=== PATIENT | female | born 1970 | race Caucasian/White ===

== ENCOUNTER 2024-03-23 16:29 | Emergency (ER) | payer MEDICAID, SELFPAY ==
--- OUTSIDE RECORDS SUMMARY | 2024-03-23 16:31 | XMS_ITS | Clinical Summary ---
Author Organization [facility] Address [place], [place] [address] Care Team Providers Care Camp Tender Name Role Phone Crispin Ordoñez MD Primary Care P dader Allergies Active Allergy Reactions Criticality Noted Date Comments Latex Rash 04/30/2015 Penicillins Rash Medium 01/18/2006 Medications tacrolimus (PROTOPIC) 0.1 % ointmentIndicat ions:Vitiligo Apply topically to affected area(s) two times daily. 100 g 11 4 Active FLUoxetine (PROZAC) 20 mg capsuleIndicati ons:Depression, recurrent (HC),MALU (generalized anxiety disorder) Take 1 Capsule (20 mg) by mouth once daily. If no side effects, you can increase to 2 pills per day after 1 week of taking. 30 Capsule 1 5 Active amLODIPine (NORVASC) 5 mg tabletIndicatio ns:HTN (hypertension) Take 1 Tablet (5 mg) by mouth once daily. 30 Tablet 1 5 Active prochlorperazin e (COMPAZINE) 5 mg tabletIndicatio ns:Nausea and vomiting, unspecified vomiting type Take 1 Tablet (5 mg) by mouth every 6 hours if needed for Nausea/Vomiting . 30 Tablet 5 Active budesonide-form oteroL (SYMBICORT) 80-4.5 mcg/actuation (80-4.5 mcg each actuation) inhalerIndicati ons:Moderate asthma with exacerbation, unspecified whether persistent Inhale 2 puffs twice daily and 1-2 puffs every 4 hours as needed for asthma exacerbations. Max of 8 puffs per day. 1 Each 5 Active polyethylene glycol-electrol yte (GOLYTELY) 236-22.74-6.74 -5.86 gram suspensionIndic ations:Encounte r for screening colonoscopy Drink 2 liters (half the bottle) the day before colonoscopy and 2 liters (remaining prep) 6 hours prior to colonoscopy appointment. 4000 mL 5 Active albuterol HFA (PROAIR HFA) 90 mcg/Actuation inhaler Inhale 1-2 Puffs by mouth every 6 hours if needed. 1 Inhaler 0 0 025 Discontin ued(*Med complete/ Regimen complete/ Level of care change) norgestimate-et hinyl estradiol, 0.25-35 mg-mcg, (ORTHO-CYCLEN) 0.25-35 mg-mcg tabletIndicatio ns:Menorrhagia with regular cycle Take 1 tablet by mouth once daily. Take one pill from each pack every day until bleeding stops, then switch to one pill each day. 2 Package 7 025 Discontin ued(*Med complete/ Regimen complete/ Level of care change) FLUoxetine (PROZAC) 20 mg capsule Take 1 Capsule (20 mg) by mouth once daily. 90 Capsule 3 4 025 Discontin ued(Reord er (E-cancel not sent)) predniSONE (DELTASONE) 10 mg tabletIndicatio ns:Vitiligo Take 1 Tablet (10 mg) by mouth once daily with a meal. 14 Tablet 4 025 Discontin ued(*Med complete/ Regimen complete/ Level of care change) prochlorperazin e (COMPAZINE) 5 mg tabletIndicatio ns:Nausea and vomiting, unspecified vomiting type Take 1 Tablet (5 mg) by mouth every 6 hours if needed for Nausea/Vomiting . 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 (Problem list name updated by automated process. Provider to review and confirm.) Resolved Problems Problem Noted Date Diagnosed Date Resolved Date Trigger finger of all digits of both hands 03/17/2024 03/17/2024 (normal spontaneous vaginal delivery) 06/18/2015 12/14/2023 care and examinat ion of lactating mother 06/18/2015 12/14/2023 Encounters Date Type Department Care Team Description 03/22/2024 Telephone [facility] [address] [place] [address] Minor Aguilera MD Appointment Reminder ([facility] 03/29/24) 03/18/2024 Telephone [facility] [address] [place] [address] Crispin Ordoñez MD Results 03/18/2024 Telephone [facility] [address] [place] [address] Minor Aguilera MD Need Meds 03/18/2024 Telephone [facility] [address] [place] [address] Abdullahi Golden LICSW Late Cancel Appointment 03/17/2024 1:00 PM DRIVER TRAINER Office Visit [facility] [address] [place] [address] Crispin Ordoñez MD eating disorder; Arthritis (hands are painful- toes can hurt sometimes too ); Blood Pressure; Form (medical opinion form ) 03/17/2024 Travel 02/10/[address] [facility] [address] [address] Maci Rosario MD Appointment (DERMATOLOGY ORDER TO LIGHT THERAPY/LASER TREATMENT) 02/09/2024 4:30 PM DRIVER TRAINER Office Visit [facility] [address] [place] [address] Maci Rosario MD Derm Problem 02/09/2024 Travel 12/28/2023 Nurse Triage [facility] [address] [place] [address] Crispin Ordoñez MD Chest Pain from Last 3 Months Immunizations Name Administration Dates Next Due Influenza Virus, Unspecified 01/18/2008 Influenza, IIV3 (Age 6-35 mos) 12/11/2011,2009 Influenza, IIV4 11/27/2014,11/17/2012 Tdap 04/03/2015,02/05/2012 Family History Medical History Relation Name Comments Leukemia Father Osteosarcoma Son left leg Relation Name Status Comments Father Son Social History Tobacco Use Types Packs/Day Years Used Date Smoking Tobacco: Passive Smo ke Exposure - Never Smoker Smokeless Tobacco: Never Alcohol Use Standard Drinks/Week Comments No 0 (1 standard drink = 0.6 oz pur e alcohol) rare PHQ-2 Answer Date Recorded PHQ-2 TOTAL SCORE 4 03/17/2024 Social Connections Answer Date Recorded Do you often feel lonely or isolated from those around you? 0 12/14/2023 Financial Resource Strain Answer Date R ecorded Difficulty of Paying Living Expenses 3 12/14/2023 Difficulty of Paying Living Expenses Not on file 12/14/2023 Food Insecurity Answer Date Recorded Do you worry your food will run out before you are able to buy more? 1 12/14/2023 Transportation Needs Answer Date Record ed Does lack of transportation keep you from medica l appointments? 1 12/14/2023 Does lack of transportation keep you from work, meetings or getting things that you need? 1 12/14/2023 Housing Stability Answer Date Recorded What is your housing situation today? 1 12/14/2023 Utilities Answer Date Recorded Do you have trouble paying f or utilities (for example, heat, electricity, water, phone)? 1 12/14/2023 Comments No Sex and Gender Information Value Date Recorded Sex Assigned at Not on file Legal Sex Female 6:37 AM DRIVER TRAINER Gender Identity Not on file Sexual Orientation Not on file Obstetrics History Para Term AB IAB SAB Ectopic Multiple Livin g Live Births 10 8 3 5 1 0 1 0 0 7 7 Date Outcome GA Total Labor Labor/2nd/3rd Weight Sex Type Anes PTL Chely A1 A5 Name Clin 8 32w 0d 1.36 kg (3 lb) M Vag Living 1988 23w 0d M Demise 1989 SAB 19w 0d F N Demise 1 32w 0d 2.27 kg (5 lb) F Vag Y Living 5 35w 0d 2.27 kg (5 lb) F Vag Y Living 6 35w 0d 1.81 kg (4 lb) F Vag Y Living 9 Term 39w 0d 2.81 kg (6 lb 3 oz) F Vag Living 4 Term 39w 0d 3.18 kg (7 lb) F Vag Living 8 Term 40w 0d 3.18 kg (7 lb) M Vag Living Last Filed Vital Signs Vital Sign Reading Time Taken Comments Blood Pressure 146/90 03/17/2024 1:59 PM DRIVER TRAINER Pulse 92 03/17/2024 1:09 PM DRIVER TRAINER Temperature 36.9 C (98.4 F) 12/28/2018 6:49 PM DRIVER TRAINER Respiratory Rate 16 12/28/2018 8:00 PM DRIVER TRAINER Oxygen Saturation 100% 03/17/2024 1:09 PM DRIVER TRAINER Inhaled Oxygen Concentration - - Weight 85.8 kg (189 lb 1.6 oz) 03/17/2024 1:09 P M DRIVER TRAINER Height 154.9 cm (5' 1) 12/28/2018 6:49 PM DRIVER TRAINER Body Mass Index 35.73 12/28/2018 6:49 PM DRIVER TRAINER Plan of Treatment Upcoming Encounters Date Type Department Care Team (Late st Contact Info) Description 03/24/2024 3:00 PM DRIVER TRAINER Nurse/Clinic Staff Only [facility] [address] [place] [address] 03/25/2024 2:40 PM DRIVER TRAINER Office Visit [facility] [address] [facility] [place] [address] Vernell Lopez, OD [address] [place] [address] 03/28/2024 10:30 AM DRIVER TRAINER Office Visit [facility] [address] [place] [address] Abdullahi Golden, [facility] [address] [place] [address] 04/21/2024 1:00 PM DRIVER TRAINER Office Visit [facility] [address] [place] [address] Crispin Ordoñez MD [address] [place] [address] 05/10/2024 4:00 PM CDT Office Visit [facility] [address] [facility] [address] [place], [place] [address] Maci Rosario MD [address] [facility] [address] [place], [place] [address] Scheduled Procedures Name Priority Associated Diagnoses Date/Ti me SURGICAL PROCEDURE (TYPE PROCEDURE DESCRIPTION BELOW) Encounter for screening colonoscopy Health Maintenance Due Date Last Done Comments Pap test for age 21-65 1993 BMI (ht and wt on same day) for age 18+ 07/22/2017 07/22/2016 Colonoscopy through age 75 2017 Mammogram for age 45-75 2017 Pneumococcal series for age 50+ (1 of 1 - PCV) 2022 Zoster (shingles) series for age 50+ (1 of 2) 2022 COVID-19 vaccine series (1 - 2023- season) 2023 Influenza for age 50-64 10/25/2023 11/28/19 15, 11/17/2012, 01/18/2008 Lipids for age 45-75 12/01/2024 12/02/2019 (Verified in Care Everywhere or Patient Record) Depression screening for age 12+ 03/18/2025 03/18/2024, 03/18/2024, 03/18/2024, Additional history exists Tetanus booster 04/03/2025 04/03/2015, 02/05/2012 Hepatitis C screening for age 18-79 Addressed 03/05/2012 (Verified in Care Everywhere or Patient Record) Overridden with the intention of not completing the topic HIV for age 15-65 Addressed 11/27/2014 (Ve rified in Care Everywhere or Patient Record) Overridden with the intention of not completing the topic Tdap Completed 04/03/2015, 02/05/2012 Procedures Procedure Name Priority Date/Time Associated Diagnosis Comments IRON PLUS IRON BINDING CAP Routine 03/17/2024 2:11 PM DRIVER TRAINER Anemia of unknown etiology FERRITIN Routine 03/17/2024 2:11 PM DRIVER TRAINER Anemia of unknown etiology CBC WITH AUTO DIFFERENTIAL Routine 03/17/2024 2:11 PM DRIVER TRAINER Nausea and vomiting, unspecified vomiting type TSH Routine 03/17/2024 2:11 PM DRIVER TRAINER Nausea and vomiting, unspecified vomiting type COMP METABOLIC PANEL Routine 03/17/2024 2:11 PM DRIVER TRAINER Nausea and vomiting, unspecified vomiting type from Last 3 Months Results * TSH (03/17/2024 2:11 PM DRIVER TRAINER) TSH 1.58 mIU/L [facility] Comment: Reference Range > or = 20 Years 0.40-4.50 Ranges First trimester 0.26-2.66 Second trimester 0.55-2.73 Third trimester 0.43-2.91 Blood BLOOD SPECIMEN / Unknown 03/17/2024 2:11 PM DRIVER TRAINER 03/17/2024 2:11 PM DRIVER TRAINER Crispin Ordoñez MD CHEMISTRY Final Result [facility] [address] [place] [address], [facility] [address] [place] [address] * (ABNORMAL) IRON PLUS IRON BINDING CAP (03/17/2024 2:11 PM DRIVER TRAINER) Pathologist [facility] IRON, TOTAL 87 45 - 160 mcg/dL [facility] IRON BINDING CAPACITY 458(H) 250 - 450 mcg/dL (calc) [facility] % SATURATION 19 16 - 45 % (calc) [facility] Blood BLOOD SPECIMEN / Unknown 03/17/2024 2:11 PM DRIVER TRAINER 03/17/2024 2:11 PM DRIVER TRAINER Crispin Ordoñez MD CHEMISTRY Final Result [facility] [address] [place] [address], [facility] [address] [place] [address] * CBC AND DIFFERENTIAL (03/17/2024 2:11 PM DRIVER TRAINER) [facility] WHITE BLOOD CELL COUNT 8.2 3.8 - 10.8 Thousand/u L [facility] RED BLOOD CELL COUNT 4.35 3.80 - 5.10 Million/uL [facility] HEMOGLOBIN 12.2 11.7 - 15.5 g/dL [facility] HEMATOCRIT 37.2 35.0 - 45.0 % [facility] MCV 85.5 80.0 - 100.0 fL [facility] MCH 28.0 27.0 - 33.0 pg [facility] MCHC 32.8 32.0 - 36.0 g/dL [facility] Comment: For adults, a slight decrease in the calculated MCHC value (in the range of 30 to 32 g/dL) is most likely not clinically significant; however, it should be interpreted with caution in correlation with other red cell parameters and the patient's clinical condition. RDW 13.5 11.0 - 15.0 % [facility] PLATELET COUNT 247 140 - 400 Thousand/u L [facility] MPV 12.1 7.5 - 12.5 fL [facility] ABSOLUTE NEUTROPHILS 4,813 1,500 - 7,800 cells/uL [facility] ABSOLUTE LYMPHOCYTES 2,419 850 - 3,900 cells/uL [facility] ABSOLUTE MONOCYTES 738 200 - 950 cells/uL [facility] ABSOLUTE EOSINOPHILS 189 15 - 500 cells/uL [facility] ABSOLUTE BASOPHILS 41 0 - 200 cells/uL [facility] NEUTROPHILS 58.7 % [facility] LYMPHOCYTES 29.5 % [facility] MONOCYTES 9.0 % [facility] EOSINOPHILS 2.3 % [facility] BASOPHILS 0.5 % [facility] Blood BLOOD SPECIMEN / Unknown 03/17/2024 2:11 PM DRIVER TRAINER 03/17/2024 2:11 PM DRIVER TRAINER Crispin Ordoñez MD HEMATOLOGY Final Result [facility] [address] [place] [address], [place] [phone] [facility] [address] [place] [address] * FERRITIN (03/17/2024 2:11 PM DRIVER TRAINER) Pathologist [facility] FERRITIN 42 16 - 232 ng/mL [facility] Blood BLOOD SPECIMEN / Unknown 03/17/2024 2:11 PM DRIVER TRAINER 03/17/2024 2:11 PM DRIVER TRAINER Crispin Ordoñez MD CHEMISTRY Final Result [facility] [address] [place] [address], [place] [phone] [facility] [address] [place] [address] * (ABNORMAL) COMP METABOLIC PANEL (03/17/2024 2:11 PM DRIVER TRAINER) [facility] GLUCOSE 106(H) 65 - 99 mg/dL [facility] Comment: Fasting reference interval For someone without known diabetes, a glucose value between 100 and 125 mg/dL is consistent with prediabetes and should be confirmed with a follow-up test. UREA NITROGEN (BUN) 15 7 - 25 mg/dL [facility] CREATININE 0.61 0.50 - 1.03 mg/dL [facility] EGFR 108 > OR = 60 mL/min/1. 73m2 [facility] BUN/CREATININE RATIO SEE NOTE: (calc) [facility] Comment: Not Reported: BUN and Creatinine are within reference range. SODIUM 139 135 - 146 mmol/L [facility] POTASSIUM 4.3 3.5 - 5.3 mmol/L [facility] CHLORIDE 104 98 - 110 mmol/L [facility] CARBON DIOXIDE 28 20 - 32 mmol/L [facility] CALCIUM 9.2 8.6 - 10.4 mg/dL [facility] PROTEIN, TOTAL 7.2 6.1 - 8.1 g/dL [facility] ALBUMIN 4.1 3.6 - 5.1 g/dL [facility] GLOBULIN 3.1 1.9 - 3.7 g/dL (calc) [facility] ALBUMIN/GLOBULIN RATIO 1.3 1.0 - 2.5 (calc) [facility] BILIRUBIN, TOTAL 0.4 0.2 - 1.2 mg/dL [facility] ALKALINE PHOSPHATASE 99 37 - 153 U/L [facility] AST 103(H) 10 - 35 U/L [facility] ALT 130(H) 6 - 29 U/L [facility] Blood BLOOD SPECIMEN / Unknown 03/17/2024 2:11 PM DRIVER TRAINER 03/17/2024 2:11 PM DRIVER TRAINER Crispin Ordoñez MD CHEMISTRY Final Result [facility] [address] [place] [address], [facility] [address] [place] [address] from Last 3 Months Insurance [facility] Advance Directives * Full Code (Latest Code Status on File) Date Activated Date Inactivated Comments 06/18/2015 5:14 AM 06/19/2015 1:09 PM * Full Code Date Activated Date Inactivated Comments 06/18/2015 4:11 AM 06/18/2015 5:14 AM Question Answer Comments Code Status Discussion: Discussed * Full Code Date Activated Date Inactivated Comments 05/23/2015 6:14 AM 05/23/2015 11:07 AM * Full Code Date Activated Date Inactivated Comments 04/30/2015 8:27 PM 05/01/2015 12:58 AM Care Teams Camp Tender Relationship Specialty Start Date End Date Crispin Ordoñez MD [address] [place] [address] PCP - General Family Practice 12/14/23
[2024-03-23 16:39] VITALS: BP 193/138; PULSE 105; RESP 22; TEMP 36.3; O2SAT 99; BMI 33.8
--- NOTE | 2024-03-23 16:55 | ED.GENADULT ---
HPI - General Adult General Date Seen: 03/23/24 Chief complaint: Dental/Oral/Mouth Injury/Pain Stated complaint: [place] tooth removed, pain and poss infection Time Seen by Provider: 03/23/24 16:46 Source: patient History of Present Illness HPI narrative: Patient is a 53-year-old woman who had her right lower wisdom tooth removed a couple of weeks ago. She had already had her other wisdom teeth removed previously and says this 1 was already ?really bad when they removed it. She has had problems since then with pain. She says that she went back to the clinic last week and they gave her something for dry socket but she continues to have pain. She feels that her neck is swollen and it is difficult to swallow. She is worried about possible cancer because she has a son who had osteosarcoma 33 years ago and says that he had pain for few weeks before was diagnosed. She says at the time of the procedure she told them that she could not breathe or swallow because there was something in her throat, but they did not seem to find anything wrong. She continues to have this sensation when she lays down. She has not had fevers, facial swelling, eye redness, vomiting, chills or other symptoms. She is not currently on antibiotics. Related Data Home Medications ?Medication ?Instructions ?Recorded ?Confirmed amlodipine 5 mg tablet 5 mg PO DAILY 03/23/24 03/23/24 fluoxetine 20 mg capsule 20 mg PO DAILY 03/23/24 03/23/24 prochlorperazine maleate 5 mg 5 mg PO Q6H PRN 03/23/24 03/23/24 tablet Previous Rx's ?Medication ?Instructions ?Recorded mupirocin 2 % topical ointment 1 applic topical BID #15 grams 01/20/24 Allergies Allergy/AdvReac Type Severity Reaction Status Date / Time Penicillins Allergy Intermediate Rash Verified 03/23/24 16:37 Review of Systems Status of ROS: Reports: 6 or more systems reviewed and unremarkable except as noted in History and below [facility] PFS Social History service: No Exam Narrative: Exam Narrative: Vital signs reviewed. On initial evaluation she was hypertensive with a blood pressure 193/138, mildly tachycardic with a pulse of 105. She is not febrile. O2 sats 99% on room air. She is well-appearing, voice is normal, breathing easily. Head: Normocephalic, atraumatic. Eyes: Sclera clear. ENT: Nares clear. Dentition intact. I do not see any intraoral swelling, there is no fluctuance. She has tenderness diffusely in that right lower molar area. I do not see any drainage or obvious significant food impaction although it is difficult to see in the actual cavity itself. There is no facial erythema or edema. Neck: Supple. No adenopathy, no masses, no stridor. Const: Vital Signs, click to edit/add: Vital Signs - 24 hr 03/23/24 16:39 03/23/24 18:05 Temperature 97.4 F L Pulse Rate [Pulse Oximeter] 105 H 79 Respiratory Rate 22 18 Blood Pressure [Ri ght Upper Arm] 193/138 H 196/116 H Pulse Oximetry 99 97 Oxygen Delivery Me thod Room Air Room Air Documenting provider has reviewed patient's vital signs: yes Course Course ED Course: Discussed this with her, reviewed that I do not think this is related to cancer. She remains significantly concerned about the implications of these symptoms she is having and would feel better if we did some imaging. Will do a CT scan to make sure that there is not an unexpected abscess or other space-occupying lesion that might contribute to her globus sensation. I do not see any evidence of abscess on exam. Assuming imaging is negative, would recommend further follow-up with her oral surgeon to see if the pocket needs to be irrigated. By my review, CT scan did not show significant soft tissue inflammation, abscess, or other postoperative complication. Radiology report is reviewed. They note questionable swelling of the palate and uvula, but I do not see anything on exam. Reviewed with her that there are no significant findings on CT, no indication that antibiotics will be significantly helpful. I recommended continued use of ibuprofen and Tylenol, ice may be helpful as well. I recommended that she make an appointment with her oral surgeon so that they can recheck the area and make sure that nothing else needs to be addressed. Reasons to return reviewed. Her blood pressure remains elevated, this should be followed up with primary care. Tachycardia resolved. Vital Signs Vital signs: Initial Vital Signs Temperature 97.4 F L 03/23/24 16:39 Temperature Source Temporal Artery Scan 03/23/24 16:39 Pulse Rate 105 H 03/23/24 16:39 Respiratory Rate 22 03/23/24 16:39 Blood Pressure 193/138 H 03/23/24 16:39 Blood Pressure Mean 156 H 03/23/24 16:39 Blood Pressure Position Sitting 03/23/24 16:39 Pulse Oximetry 99 03/23/24 16:39 Oxygen Delivery Method Room Air 03/23/24 16:39 Vital Signs Temperature 97.4 F L 03/23/24 16:39 Pulse Rate 105 H 03/23/24 16:39 Respiratory Rate 22 03/23/24 16:39 Blood Pressure 193/138 H 03/23/24 16:39 Pulse Oximetry 99 03/23/24 16:39 Oxygen Delivery Method Room Air 03/23/24 16:39 Temperature 97.4 F L 03/23/24 16:39 Pulse Rate 79 03/23/24 18:05 Respiratory Rate 18 03/23/24 18:05 Blood Pressure 196/116 H 03/23/24 18:05 Pulse Oximetry 97 03/23/24 18:05 Oxygen Delivery Method Room Air 03/23/24 18:05 Medical Decision Making Lab Data Labs: Lab Results 03/23/24 Range/Units 17:15 WBC 8.98 (4.50-11.00) K/uL RBC 4.42 (4.00-5.20) m/uL Hgb 12.3 (12.0-16.0) gm/dL Hct 38.2 (33.0-51.0) % MCV 86 (80-100) fL MCH 28 (26-34) pg MCHC 32 (32-36) gm/dL RDW Coeff of Lorelei 13.6 (11.5-15.5) % Plt Count 260 (140-440) K/uL Neut % (Auto) 60.9 (42.0-72.0) % Lymph % (Auto) 26.6 (20-44) % [place] % (Auto) 9.4 (0.0-11.0) % Eos % (Auto) 1.9 (0.0-7.0) % Baso % (Auto) 0.4 (0.0-3.0) % Neut # (Auto) 5.47 (1.7-7.0) K/uL Lymph # (Auto) 2.39 (0.90-2.90) K/uL [place] # (Auto) 0.80 (0.00-0.90) K/UL Eos # (Auto) 0.17 (0.00-0.50) K/uL Baso # (Auto) 0.04 (0.00-0.30) K/uL Abs Immat Gran (auto) 0.07 (0.00-0.30) K/uL Imm/Tot Granulo (auto) 0.8 % C-Reactive Protein 1.2 H (0.5-1.0) mg/dL Imaging Data Soft tissue neck CT: Attestation: I have reviewed the pertinent imaging results. Radiologist's impression: Patient: KEREN MALDONADO Facility: [facility] RIS Site . Site : 1970 Study: CT-ST Neck 91cc Isovue 370-03/23/2024 5:56:58 PM Ordering Physician: Len Nielson Final Report: INDICATION: WISDOM TEETH REMOVAL, PAIN W/ SWALLOWING TECHNIQUE: CT of the neck with 91 ml Isovue 370 iodinated contrast agent. Coronal and sagittal reconstructions are included. COMPARISON: None FINDINGS: Questionable fullness of the soft palate and uvula could represent uvulitis. Direct visualization is recommended no evidence of acute inflammation. The supraglottic, glottic and infraglottic larynx are normal. Recent postoperative changes of right 3rd molar tooth extraction. Few foci of gas in the socket. No adjacent fat stranding. No subperiosteal abscess. Likely reactive right level 2 cervical node. The oral cavity, nasopharyngeal, oropharyngeal and hypopharyngeal mucosal spaces are normal. No periapical dental disease. The parotid glands, submandibular and sublingual glands are normal in appearance. The thyroid gland is normal in appearance. The vascular structures opacify normally with contrast material. Mild atherosclerotic calcification at the right carotid bifurcation and noncalcified plaque at the left carotid bifurcation resulting in no hemodynamically significant stenosis. No suspicious lytic or blastic osseous lesions. Visualized paranasal sinuses and mastoid air cells are clear. Visualized orbital and intracranial contents are normal. Supraclavicular regions, mediastinum and soft tissues of the imaged chest wall are normal. Visualized portions of the upper lungs are clear. IMPRESSION: 1. No suspicious enhancement or neck mass. 2. Recent postoperative changes of right 3rd molar tooth extraction. Few foci of gas in the socket. No adjacent fat stranding. No subperiosteal abscess. No osteomyelitis. 3. Questionable fullness of the soft palate and uvula could represent uvulitis. Direct visualization is recommended no evidence of acute inflammation. 4. Mild atherosclerotic calcification at the right carotid bifurcation and noncalcified plaque at the left carotid bifurcation resulting in no hemodynamically significant stenosis. 5. Likely reactive right level 2 cervical node. Please note that all CT scans at this facility use dose modulation, iterative reconstruction, and/or weight-based dosing when appropriate to reduce radiation dose to as low as reasonably achievable. Dictated by Donald Huff MD @ 03/23/2024 6:31:11 PM Discharge Plan Discharge Clinical Impression: Post-operative pain, S/P wisdom tooth extraction Patient Disposition: Home, Self-Care Condition: Stable Instructions: Pain Management After Surgery (DC) Additional Instructions: Your CT scan does not show any postoperative complications such as abscess, bone infection, or significant soft tissue infection. I would recommend that you call your oral surgeon and make another follow-up appointment to have them take a look. In the meantime, I would recommend Tylenol 1000 mg plus ibuprofen 400 mg 3 times a day for pain. You can also use ice. Your blood pressure is elevated here today. This should be followed up by your regular doctor in the next couple of weeks. For facial swelling or redness, fevers, or other worsening, return to the ER at any time. Prescriptions: No Action mupirocin 2 % ointment 1 applic topical BID Qty: 15 0RF prochlorperazine maleate 5 mg tablet 5 mg PO Q6H PRN Patient Comments: [NO ORIGINAL SIG] amlodipine 5 mg tablet 5 mg PO DAILY fluoxetine 20 mg capsule 20 mg PO DAILY Patient Comments: [NO ORIGINAL SIG] Follow Up/Referrals: Provider,Not a Local [Primary Care Provider] - Stand Alone Forms: Mobile Game Day Info Instructions
--- OUTSIDE RECORDS SUMMARY | 2024-03-23 17:14 | XMS_ITS | Clinical Summary ---
Author Organization [employer] [facility] [employer] [facility] Address [place], [place] [address] Care Team Providers Care Ground Defence Officer Name Role Phone Crispin Ordoñez MD Primary [...] Type Department Care Team Description 03/22/2024 Telephone [facility] [address] [place] [address] Minor Aguilera MD Appointment Reminder ([facility] 03/29/24) 03/18/2024 Telephone [facility] [address] [place] [address] Crispin Ordoñez MD Results 03/18/2024 Telephone [facility] [address] [place] [address] Minor Aguilera MD Need Meds 03/18/2024 Telephone [facility] [address] [place] [address] Abdullahi Golden LICSW Late Cancel Appointment 03/17/2024 1:00 PM INSTRUMENT MAN Office Visit [facility] [address] [place] [address] Crispin Ordoñez MD eating disorder; Arthritis (hands are painful- toes can hurt sometimes too ); Blood Pressure; Form (medical opinion form ) 03/17/2024 Travel 02/10/2024 Telephone [facility] [address] [address] Maci Rosario MD Appointment (DERMATOLOGY ORDER TO LIGHT THERAPY/LASER TREATMENT) 02/09/2024 4:30 PM INSTRUMENT MAN Office Visit [facility] [address] [place] [address] Maci Rosario MD Derm Problem 02/09/2024 Travel 12/28/2023 Nurse Triage [facility] [address] [place] [address] Crispin Ordoñez MD Chest Pain from Last [...] on file Legal Sex Female 6:37 AM INSTRUMENT MAN Gender Identity Not on file Sexual Orientation [...] Comments Blood Pressure 146/90 03/17/2024 1:59 PM INSTRUMENT MAN Pulse 92 03/17/2024 1:09 PM INSTRUMENT MAN Temperature 36.9 C (98.4 F) 12/28/2018 6:49 PM INSTRUMENT MAN Respiratory Rate 16 12/28/2018 8:00 PM INSTRUMENT MAN Oxygen Saturation 100% 03/17/2024 1:09 PM INSTRUMENT MAN Inhaled Oxygen Concentration - - Weight 85.8 kg (189 lb 1.6 oz) 03/17/2024 1:09 P M INSTRUMENT MAN Height 154.9 cm (5' 1) 12/28/2018 6:49 PM INSTRUMENT MAN Body Mass Index 35.73 12/28/2018 6:49 PM INSTRUMENT MAN Plan of Treatment Upcoming Encounters Date Type Department Care Team (Late st Contact Info) Description 03/24/2024 3:00 PM INSTRUMENT MAN Nurse/Clinic Staff Only [facility] [address] [place] [address] 03/25/2024 2:40 PM INSTRUMENT MAN Office Visit [facility] [address] [facility] [place] [address] Vernell Lopez, OD [address] [facility] [place] [address] 03/28/2024 10:30 AM INSTRUMENT MAN Office Visit [facility] [address] [place] [address] Abdullahi Golden, [place] [facility] [address] [place] [address] 04/21/2024 1:00 PM INSTRUMENT MAN Office Visit [facility] [address] [place] [address] Crispin Ordoñez MD [address] [place] [address] 05/10/2024 4:00 PM CDT Office Visit [facility] [address] [facility] [address] [place], [place] [address] Maci Rosario MD [address] [facility] [address] [place], [place] [address] Scheduled Procedures Name Priority Associated Diagnoses Date/Ti [...] IRON BINDING CAP Routine 03/17/2024 2:11 PM INSTRUMENT MAN Anemia of unknown etiology FERRITIN Routine 03/17/2024 2:11 PM INSTRUMENT MAN Anemia of unknown etiology CBC WITH AUTO DIFFERENTIAL Routine 03/17/2024 2:11 PM INSTRUMENT MAN Nausea and vomiting, unspecified vomiting type TSH Routine 03/17/2024 2:11 PM INSTRUMENT MAN Nausea and vomiting, unspecified vomiting type COMP METABOLIC PANEL Routine 03/17/2024 2:11 PM INSTRUMENT MAN Nausea and vomiting, unspecified vomiting type from Last 3 Months Results * TSH (03/17/2024 2:11 PM INSTRUMENT MAN) TSH 1.58 mIU/L [facility] Comment: Reference Range > or = 20 Years 0.40-4.50 Ranges First trimester 0.26-2.66 Second trimester 0.55-2.73 Third trimester 0.43-2.91 Blood BLOOD SPECIMEN / Unknown 03/17/2024 2:11 PM INSTRUMENT MAN 03/17/2024 2:11 PM INSTRUMENT MAN Crispin Ordoñez MD CHEMISTRY Final Result [facility] [address] [place] [address], [facility] [address] [place] [address] * (ABNORMAL) IRON PLUS IRON BINDING CAP (03/17/2024 2:11 PM INSTRUMENT MAN) Pathologist [facility] IRON, TOTAL 87 45 - 160 mcg/dL [facility] [place] IRON BINDING CAPACITY 458(H) 250 - 450 mcg/dL (calc) [facility] [place] % SATURATION 19 16 - 45 % (calc) [facility] [place] Blood BLOOD SPECIMEN / Unknown 03/17/2024 2:11 PM INSTRUMENT MAN 03/17/2024 2:11 PM INSTRUMENT MAN Crispin Ordoñez MD CHEMISTRY Final Result [facility] [address] [place] [address], [facility] [address] [place] [address] * CBC AND DIFFERENTIAL (03/17/2024 2:11 PM INSTRUMENT MAN) [facility] WHITE BLOOD CELL COUNT 8.2 3.8 - 10.8 Thousand/u L [facility] [place] RED BLOOD CELL COUNT 4.35 3.80 - 5.10 Million/uL [facility] [place] HEMOGLOBIN 12.2 11.7 - 15.5 g/dL [facility] [place] HEMATOCRIT 37.2 35.0 - 45.0 [...] COUNT 247 140 - 400 Thousand/u L [facility] [place] MPV 12.1 7.5 - 12.5 [...] BLOOD SPECIMEN / Unknown 03/17/2024 2:11 PM INSTRUMENT MAN 03/17/2024 2:11 PM INSTRUMENT MAN Crispin Ordoñez MD HEMATOLOGY Final Result [facility] [address] [place] [address], [place] [phone] [facility] [address] [place] [address] * FERRITIN (03/17/2024 2:11 PM INSTRUMENT MAN) Pathologist [facility] FERRITIN 42 16 - 232 ng/mL [facility] [place] Blood BLOOD SPECIMEN / Unknown 03/17/2024 2:11 PM INSTRUMENT MAN 03/17/2024 2:11 PM INSTRUMENT MAN Crispin Ordoñez MD CHEMISTRY Final Result [facility] [address] [place] [address], [place] [phone] [facility] [address] [place] [address] * (ABNORMAL) COMP METABOLIC PANEL (03/17/2024 2:11 PM INSTRUMENT MAN) [facility] GLUCOSE 106(H) 65 - 99 mg/dL [facility] [...] BLOOD SPECIMEN / Unknown 03/17/2024 2:11 PM INSTRUMENT MAN 03/17/2024 2:11 PM INSTRUMENT MAN Crispin Ordoñez MD CHEMISTRY Final Result [facility] [address] [place] [address], [facility] [address] [place] [address] from Last 3 Months Insurance [facility] Advance Directives * Full Code (Latest Code [...] 8:27 PM 05/01/2015 12:58 AM Care Teams Ground Defence Officer Relationship Specialty Start Date End Date Crispin Ordoñez MD [address] [place] [address] PCP - General Family Practice 12/14/23
[2024-03-23 17:29] LABS: Basophils Absolute Auto 0.04 K/uL (0.00-0.30); Basophils Percent Auto 0.4 % (0.0-3.0); Eosinophils Absolute Auto 0.17 K/uL (0.00-0.50); Eosinophils Percent Auto 1.9 % (0.0-7.0); Hematocrit 38.2 % (33.0-51.0); Hemoglobin* 12.3 gm/dL (12.0-16.0); Immature Granulocytes Abs Auto 0.07 K/uL (0.00-0.30); Immature Granulocytes Pct Auto 0.8 %; Lymphocytes Absolute Auto 2.39 K/uL (0.90-2.90); Lymphocytes Percent Auto 26.6 % (20-44); Mean Corpuscular HGB Conc 32 gm/dL (32-36); Mean Corpuscular Hemoglobin 28 pg (26-34); Mean Corpuscular Volume 86 fL (80-100); Monocytes Percent Auto 9.4 % (0.0-11.0); Neutrophils Absolute Auto 5.47 K/uL (1.7-7.0); Neutrophils Percent Auto 60.9 % (42.0-72.0); Platelet Count* 260 K/uL (140-440); RDW Coefficient of Variation % 13.6 % (11.5-15.5); Red Blood Count 4.42 m/uL (4.00-5.20); Slide Review Reflex No; White Blood Count* 8.98 K/uL (4.50-11.00)
[2024-03-23 17:54] LABS: C Reactive Protein* 1.2 mg/dL (0.5-1.0)
[2024-03-23 18:05] VITALS: BP 196/116; PULSE 79; RESP 18; O2SAT 97
[2024-03-23 18:52] VITALS: BP 147/99; PULSE 82; RESP 16; O2SAT 98
== END 2024-03-23 18:53 | disposition home or self-care (01) ==
PROVIDERS: Emergency Provider Emergency Medicine
DX: G89.18 Other acute postprocedural pain (principal)
CPT/HCPCS: 36415; 70491; 82565; 85025; 86140; 99283; 99284; Q9967

== ENCOUNTER 2024-07-13 12:06 | Emergency (ER) | payer MEDICAID, SELFPAY ==
--- OUTSIDE RECORDS SUMMARY | 2024-07-13 12:10 | XMS_ITS | Clinical Summary ---
Author Organization [facility] Address [address] [place] [id number] Care Team Providers Care Watch Guard Gate Name Role Phone Crispin Ordoñez MD Primary Care P rovider Allergies Active Allergy Reactions Criticality Noted Date Comments Latex Rash 04/30/2015 Penicillins Rash Medium 01/18/2006 Shellfish Containing Products Nausea And Vomiting Medium 08/20/2015 Medications tacrolimus (PROTOPIC) 0.1 % ointmentIndicati ons:Vitiligo Apply topically to affected area(s) two times daily. 100 g 11 4 Active prochlorperazine (COMPAZINE) 5 mg tabletIndication s:Nausea and vomiting, unspecified vomiting type Take 1 Tablet (5 mg) by mouth every 6 hours if needed for Nausea/Vomiti ng. 30 Tablet 5 Active naproxen (NAPROSYN) 500 mg tabletIndication s:Facial pain Take 1 Tablet (500 mg) by mouth every 12 hours if needed for Pain or Headache. 30 Tablet 5 Active ruxolitinib (Opzelura) 1.5 % creaIndications: Vitiligo Apply topically to affected area(s) two times daily. 60 g 3 5 Active FLUoxetine 40 mg capsuleIndicatio ns:Depression, recurrent,MALU (generalized anxiety disorder) Take 1 Capsule (40 mg) by mouth once daily. 90 Capsule 3 5 Active amLODIPine 5 mg tabletIndication s:HTN (hypertension) Take 1 Tablet (5 mg) by mouth once daily. 90 Tablet 3 5 Active lisinopriL 20 mg tabletIndication s:Essential hypertension Take 1 Tablet (20 mg) by mouth once daily. 60 Tablet 5 Active budesonide-formo teroL (Symbicort) 80-4.5 mcg/actuation (80-4.5 mcg each actuation) inhalerIndicatio ns:Moderate asthma with exacerbation, unspecified whether persistent (HC) INHALE 2 PUFFS TWICE DAILY AND 1-2 PUFFS EVERY 4 HOURS NEEDED FOR ASTHMA EXACERBATIONS . MAX: 8 PUFFS/D 10.2 g 5 5 Active budesonide-formo teroL (Symbicort) 80-4.5 mcg/actuation (80-4.5 mcg each actuation) inhalerIndicatio ns:Moderate asthma with exacerbation, unspecified whether persistent (HC) INHALE 2 PUFFS TWICE DAILY AND 1-2 PUFFS EVERY 4 HOURS NEEDED FOR ASTHMA EXACERBATIONS . MAX: 8 PUFFS/D 10.2 g 5 07/07/19 25 Discontin ued(Reord er (E-cancel not sent)) Blood Pressure Monitor KitIndications:E ssential hypertension Frequency of testing: daily 1 Each 5 07/07/19 25 Discontin ued(*Med complete/ Regimen complete/ Level of care change) lisinopriL 5 mg tabletIndication s:Essential hypertension Take 1 Tablet (5 mg) by mouth once daily. 60 Tablet 5 07/06/19 25 Discontin ued(*Medi cation adjustmen t) lisinopriL 5 mg tabletIndication s:Essential hypertension Take 2 Tablets (10 mg) by mouth once daily. 60 Tablet 5 07/07/19 25 Discontin ued(*Med complete/ Regimen complete/ Level of care change) Active Problems Problem Noted Date Diagnosed Date Moderate asthma with exacerbation 03/17/2024 MALU (generalized anxiety disorder) 03/17/2024 Sleep apnea 12/02/2019 Class 1 obesity due to exces s calories without serious comorbidity with body mass index (BMI) of 30.0 to 30.9 in adult 06/18/2015 Bulimia nervosa 01/04/2015 Overview (06/01/2024): AI Summary: As of 03/17/24: The patient's chart mentions Bulimia Nervosa on multiple occasions between 01/11/2019 and 03/17/2024. As of 12/14/23: There is uncertainty about the diagnosis of bulimia nervosa on 12/14/2023. As of 06/30/15: Bulimia nervosa diagnosis was established before 06/30/2015. 03/17/24: TSH 1.58 mIU/L 03/17/24: Glu 106 mg/dL On meds: fluoxetine, prochlorperazine, sertraline (external) Recent encounter dx: 05/26/23: Office Visit - [facility] (from [facility]) Recent notes: 03/17/24: Progress Notes - Office visit by Crispin Ordoñez MD ... [+] ? Bulimia nervosa 12/14/23: Progress Notes - Office visit by Crispin Ordoñez MD ... [-] bulimia nervosa? 05/26/23: Progress Notes by Kim Shannon DO (from [facility]) ... [+] Bulimia nervosa 01/11/19: ED Notes - ED Provider Notes by Ed Bhat MD (from [place]) ... [+] Bulimia nervosa Anxiety 06/18/15: Record - [facility] by ARIADNA BURR ... [-] Bulimia nervosa 01/04/2015 by Cat Hendricks PA-C No AI Summary: As of 12/14/23: On 12/14/2023, the provider noted that the patient's symptoms seemed more consistent with cyclical vomiting syndrome than bulimia, as she did not report concerns about body image or weight. As of 10/23/17: On 10/23/2017, the patient presented to the ED with back pain; bulimia was listed as part of her medical history. As of 06/30/15: Bulimia was first noted in the patient's history on 06/30/2015. As of 08/25/14: On 08/25/2014, the patient admitted to an eating disorder, possibly bulimia, characterized by self-induced vomiting 3-4 times daily after meals. Recent notes: 12/14/23: Progress Notes - Office visit by Crispin Ordoñez MD ... [+] Patient has bulimia on historical problem list, however it symptoms sound more like cyclical vomiting syndrome than true bulimia as patient does not report any concerns about image or weight or an unhealthy relationship with food outside of she cannot get food to stay down after eating. 06/30/15: ED Provider Note - Emergency Department Provider Note by Vernon Mcginnis MD ... [+] ? Bulimia F50.2 06/19/15: Discharge Summary by Ariadna Burr MD ... [+] Bulimia 06/18/15: H&P - OB ADMISSION NOTE by Donald Roy MD ... [+] course was complicated by chronic hypertension, previous labor and delivery, AMA, bulimia, and obesity. 06/18/15: Record - [facility] by ARIADNA BURR ... [-] agree with [facility] for bulimia. Essential hypertension 09/06/2014 Moderate episode of recurrent [...] Encounters Date Type Department Care Team Description 07/13/2024 11:30 AM CDT Orders Only [facility] [address] [place] [address] Lab, [place] [facility] 07/13/2024 Nurse Triage [facility] [address] [place] [address] Claudia Gillis RN High Blood Pressure (Walked in with symptoms of high BP and blurry vision) 07/13/2024 Travel 07/10/2024 Travel 07/06/2024 2:40 PM CDT Office Visit [facility] [address] [facility] [address] Crispin Ordoñez MD Follow Up (Follow Up on everything she says ) 07/06/2024 Travel 07/05/2024 2:25 PM CDT Office Visit [facility] [address] [facility] [address] Chelsea Arias MD Hospice Clinical Supervisor Exam 07/04/2024 3:00 PM CDT Nurse/Clinic Staff Only [facility] [address] [place] [address] Procedure (uvb) 07/04/2024 Travel 06/27/2024 3:00 PM CDT Nurse/Clinic Staff Only [facility] [address] [place] [address] Procedure (uvb) 06/27/2024 Travel 06/23/2024 Travel 06/13/2024 3:00 PM CDT Nurse/Clinic Staff Only [facility] [address] [place] [address] Procedure (uvb) 06/13/2024 Travel 06/06/2024 3:00 PM CDT Nurse/Clinic Staff Only [facility] [address] [place] [address] Procedure (uvb) 06/06/2024 Travel 06/01/2024 4:00 PM CDT Ancillary Procedure [facility] [address] [place] [address] 06/01/2024 2:40 PM CDT Office Visit [facility] [address] [facility] [address] Crispin Ordoñez MD Medication Management 06/01/2024 Travel 05/30/2024 2:30 PM CDT Nurse/Clinic Staff Only [facility] [address] [place] [address] Procedure (uvb) 05/30/2024 Travel 05/23/2024 3:00 PM CDT Nurse/Clinic Staff Only [facility] [address] [place] [address] Procedure (uvb) 05/23/2024 Travel 05/23/2024 Refill [facility] [address] [facility] [place] [address] Elida Yan, Refill Request (FLUOXETINE HCL 20MG CAP) 05/16/2024 3:00 PM CDT Nurse/Clinic Staff Only [facility] [address] [place] [address] Procedure (uvb) 05/16/2024 Telephone [facility] [address] [place] [address] Maci Rosario MD Prior Authorization (ruxolitinib (Opzelura) 1.5 % cream (APPROVED May 17, 2024 to May 17, 2025)) 05/16/2024 Telephone [facility] [address] [place] [address] Maci Rosario MD Prior Authorization 05/16/2024 Travel 05/10/2024 4:00 PM CDT Office Visit [facility] [address] [place] [address] Maci Rosario MD Derm Problem 05/10/2024 Travel 04/22/2024 1:10 PM FAMILY PRACTICE DOCTOR Office Visit [facility] [address] [facility] [place] [address] Elida Yan DO Blood Pressure (Follow up ); Imaging (Wanting Right side Mandible ) 04/22/2024 Travel from Last 3 Months Immunizations Immunization Administration Dates Next Due Influenza Virus, Unspecified 01/18/2008 Influenza, IIV3 (Age 6-35 mos) 12/11/2011,2009 Influenza, IIV4 11/27/2014,11/17/2012 Tdap 04/03/2015,02/05/2012 Family History Medical History Relation Name Comments Leukemia Father Osteosarcoma Son left leg Relation Name Status Comments Father Son Social History Tobacco Use Types Packs/Day Years Used Date Smoking Tobacco: Never Passive Smoke Exposure: Yes Smokeless Tobacco: Never Tobacco Cessation:Counseling Given: No Alcohol Use Standard Drinks/Week Comments No 0 (1 standard drink = 0.6 oz pur e alcohol) rare PHQ-2 Answer Date Recorded PHQ-2 TOTAL SCORE 3 06/01/2024 Social Connections Answer Date Recorded Do you [...] is your housing situation today? 1 12/14/2023 Interpersonal Safety Answer Date Record ed Are you being hit, kicked, p ushed or yelled at (see row info)? No 04/02/2024 Interpersonal Safety Abuse 12 - 18 Not on file 04/02/2024 Interpersonal Safety Ambulatory Vulnerability No t on file 04/02/2024 Utilities Answer Date Recorded Do you have trouble paying f or utilities (for example, heat, electricity, water, phone)? 1 12/14/2023 Comments No Sex and Gender Information Value Date Recorded Sex Assigned at Not on file Legal Sex Female 6:37 AM FAMILY PRACTICE DOCTOR Gender Identity Not on file Sexual Orientation [...] Sign Reading Time Taken Comments Blood Pressure 145/91 07/06/2024 2:30 PM CDT Pulse 83 07/06/2024 2:30 PM CDT Temperature 36.9 C (98.5 F) 04/02/2024 4:17 PM FAMILY PRACTICE DOCTOR Respiratory Rate 18 04/02/2024 4:17 PM FAMILY PRACTICE DOCTOR Oxygen Saturation 99% 07/06/2024 2:30 PM CDT Inhaled Oxygen Concentration - - Weight 85.5 kg (188 lb 6.4 oz) 07/06/2024 2:30 P M CDT Height 157.5 cm (5' 2) 04/02/2024 4:17 PM FAMILY PRACTICE DOCTOR Body Mass Index 34.46 04/02/2024 4:17 PM FAMILY PRACTICE DOCTOR Plan of Treatment Upcoming Encounters Date Type Department Care Team (Late st Contact Info) Description 07/15/2024 3:00 PM CDT Nurse/Clinic Staff Only [facility] [address] [place] [address] 07/22/2024 3:00 PM CDT Nurse/Clinic Staff Only [facility] [address] [place] [address] 08/09/2024 4:00 PM CDT Office Visit [facility] [address] [place] [address] Maci Rosario MD [address] [place] [address] 08/12/2024 1:25 PM CDT Office Visit [address] [place] [address] Crispin Ordoñez MD [address] [place] [address] Scheduled Procedures Name Priority Associated Diagnoses Date/Ti me SURGICAL PROCEDURE (TYPE PROCEDURE DESCRIPTION BELOW) Encounter for screening colonoscopy Health Maintenance Due Date Last Done Comments Hepatitis B series for 19+ (1 of 3 - 19+ 3-dose series) 09/09/1991 BMI (ht and wt on same day) for age 18+ 07/22/2017 07/22/2016 Colonoscopy through age 75 2017 Pneumococcal series for age 50+ (1 of 1 - PCV) 2022 Zoster (shingles) series for age 50+ (1 of 2) 2022 COVID-19 vaccine series ( - season) 2023 Influenza Vaccine (Season Ended) 2024 11/27/2014, 11/17/2012, 12/11/2011, Additional history exists Lipids for age 45-75 12/01/2024 12/02/2019 (Verified in Care Everywhere or Patient Record) Tetanus booster 04/03/2025 04/03/2015, 02/05/2012 Depression screening for age 12+ 06/01/2025 06/01/2024 Mammogram for age 45-75 06/01/2025 06/01/2024 Pap test for age 21-65 07/06/2027 07/05/2024 Hepatitis C screening for age 18-79 Addressed 03/05/2012 (Verified in Care Everywhere or Patient Record) Overridden with the intention of not completing the topic HIV for age 15-65 Addressed 11/27/2014 (Ve rified in Care Everywhere or Patient Record) Overridden with the intention of not completing the topic Tdap Completed 04/03/2015, 02/05/2012 Procedures Procedure Name Priority Date/Time Associated Diagnosis Comments HPV HIGH RISK Routine 07/05/2024 3:11 PM CDT Screening for cervical cancer XR MAMMO DRE BILAT SCREEN Routine 06/01/2024 4:13 PM CDT Encounter for screening mammogram for malignant neoplasm of breast from Last 3 Months Results * HPV HIGH RISK (07/05/2024 3:11 PM CDT) TYPE 16 Negative Negative 07/08/2024 2:58 PM CDT [facility] TYPE 18 Negative Negative 07/08/2024 2:58 PM CDT [facility] OTHER HIGH RISK TYPES Negative Negative 07/08/2024 2:58 PM CDT [facility] Other (Cervical) Non-Blood / Unknown 07/05/2024 3:11 PM CDT 07/06/2024 11:42 AM CDT Narrative [facility] - 07/08/2024 2:58 PM CDT HPV types 16, 18, 31, 33, 35, 39, 45, 51, 52, 56, 58, 59, 66 and 68 DNA were undetectable or below the pre-set threshold. Methodology: Emailageas 4800 HPV Test us Chelsea Arias MD MICROBIOLOGY Final Resul t [facility] [address] [place] [address], * XR MAMMO DRE BILAT SCREEN (06/01/2024 4:13 PM CDT) Anatomical Region Laterality Modality BREASTS, Breast Left, Breast Right Bilateral Mammography Impressions 06/02/2024 2:50 PM CDT There is no radiographic evidence for malignancy. Recommend annual mammograms. MAMMOGRAM ASSESSMENT: ACR 1 Negative PATIENTS: You will also receive a letter with your examination results in an easy to read format. If you have questions about your results, please contact your referring provider. Narrative 06/02/2024 2:50 PM CDT For Patients: As a result of the Century Cures Act, medical imaging exams and procedure reports are released immediately into your electronic medical record. You may view this report before your referring provider. If you have questions, please contact your health care provider. XR MAMMO DRE BILAT SCREEN [[id number]] CLINICAL HISTORY: This is an asymptomatic 53 y.o. patient. INDICATION FOR EXAM: Mammogram Screening. TECHNIQUE: CC and MLO views were obtained. This study was evaluated with the assistance of Computer-Aided Detection. Breast Tomosynthesis was used in interpretation. COMPARISON FILM: Yes 10/04/14 [facility] 09/12/14 [facility] FINDINGS: There are scattered areas of fibroglandular density. There are no dominant masses, suspicious micro calcifications or areas of architectural distortion. Crispin Ordoñez MD MAMMO Final Result from Last 3 Months Insurance [facility] Advance Directives * Full Code (Latest Code [...] 8:27 PM 05/01/2015 12:58 AM Care Teams Watch Guard Gate Relationship Specialty Start Date End Date Crispin Ordoñez MD [address] [place] [address] PCP - General Family Practice 12/14/23
[2024-07-13 12:13] VITALS: BP 119/77; PULSE 78; RESP 22; O2SAT 98; BMI 34.6
--- NOTE | 2024-07-13 12:27 | CRLHL7_ITS ---
For Patients: As a result of the Century Cures Act, medical imaging exams and procedure reports are released immediately into your electronic medical record. You may view this report before your referring provider. If you have questions, please contact your health care provider. INDICATION: Dizziness TECHNIQUE: CT head without contrast. COMPARISON: None. FINDINGS: CSF spaces: Within normal limits for age. Brain parenchyma: The kc-white differentiation is normal. No sign of mass, hemorrhage, or midline shift. Skull base and calvarium: The visualized paranasal sinuses and mastoid air cells demonstrate no acute or significant findings. The visualized orbits are grossly unremarkable. No skull fractures. Atherosclerosis. IMPRESSION: Unremarkable noncontrast head CT. Please note that all CT scans at this facility use dose modulation, iterative reconstruction, and/or weight-based dosing when appropriate to reduce radiation dose to as low as reasonably achievable. Dictated by Catrachito Jimenes MD @ 07/13/2024 1:24:25 PM (Electronically Signed)
--- NOTE | 2024-07-13 12:28 | ED.GENADULT ---
HPI - General Adult General Chief complaint: Hypertension Stated complaint: High blood pressure- sent from [facility] Time Seen by Provider: 07/13/24 12:10 History of Present Illness HPI narrative: Patient is a 53 year white female that has a history of significant anxiety, she was noted to have higher blood pressure today and asked by staff at the clinic to come to the hospital. The patient denies chest pain breathing problem fevers or chills she reports that she has had a stroke in the past, although she denies having had ever an imaging study of her head. She has had no fever, chills, cough. She noted after thinking about her children that her living separate from her that she was very anxious this morning and felt a little diaphoretic she felt anxious she felt her heart racing a little bit. She has had as mentioned no fever chills she feels better now. She took her amlodipine after she had the spell this morning and felt better. Her blood pressure is now 119/77 it was in the 150s over 105 approximately. No neurologic complaints. The patient has had no fever chills as mention no chest pain. The patient reports a history of hypertension and anxiety as well as asthma. Related Data Home Medications ?Medication ?Instructions ?Recorded ?Confirmed amlodipine 5 mg tablet 5 mg PO DAILY 03/23/24 07/13/24 fluoxetine 20 mg capsule 20 mg PO DAILY 03/23/24 07/13/24 Previous Rx's ?Medication ?Instructions ?Recorded mupirocin 2 % topical ointment 1 applic topical BID #15 grams 01/20/24 Allergies Allergy/AdvReac Type Severity Reaction Status Date / Time Penicillins Allergy Intermediate Rash Verified 07/13/24 12:19 Review of Systems Status of ROS: Reports: 6 or more systems reviewed and unremarkable except as noted in History and below [facility] Social History service: No Exam Narrative: Exam Narrative: Objective: Patient is very pleasant alert oriented no focal neurologic complaints. Patient has vitiligo Vital signs are within normal limits HEENT is unremarkable no facial asymmetry tongue protrudes midline pupils aggression light extraocular moves intact no neck stiffness Strength and sensation upper lower extremities unremarkable Heart rhythm regular heart murmur No pronator drift noted Mental status is appropriate. Patient is still feels somewhat anxious but feels better than this morning.. Const: Vital Signs, click to edit/add: Vital Signs - 24 hr 07/13/24 12:13 Pulse Rate [Pulse Oximeter] 78 Respiratory Rate 22 Blood Pressure [Ri ght Upper Arm] 119/77 Pulse Oximetry 98 Oxygen Delivery Me thod Room Air Course Vital Signs Vital signs: Initial Vital Signs Pulse Rate 78 07/13/24 12:13 Respiratory Rate 22 07/13/24 12:13 Blood Pressure 119/77 07/13/24 12:13 Blood Pressure Mean 91 07/13/24 12:13 Blood Pressure Position Sitting 07/13/24 12:13 Pulse Oximetry 98 07/13/24 12:13 Oxygen Delivery Method Room Air 07/13/24 12:13 Vital Signs Pulse Rate 78 07/13/24 12:13 Respiratory Rate 22 07/13/24 12:13 Blood Pressure 119/77 07/13/24 12:13 Pulse Oximetry 98 07/13/24 12:13 Oxygen Delivery Method Room Air 07/13/24 12:13 Pulse Rate 78 07/13/24 12:13 Respiratory Rate 22 07/13/24 12:13 Blood Pressure 119/77 07/13/24 12:13 Pulse Oximetry 98 07/13/24 12:13 Oxygen Delivery Method Room Air 07/13/24 12:13 Medications Administered Medications: Discontinued Medications Generic Name Dose Route Start Last Admin Trade Name Letty PRN Reason Stop Dose Admin Lorazepam 1 mg 07/13/24 12:27 07/13/24 12:40 Lorazepam 1 Mg Tablet PO 07/13/24 12:28 1 mg ONCE ONE Administration Medical Decision Making [facility] Narrative Medical decision making narrative: [age] year female with hypertension and asthma and significant anxiety with an anxiety attack this morning, but also elevated blood pressure. She denies any chest pain. She has had no focal neurologic complaints but I think at this point I would recommend we do a CT scan of her head to make sure given her prior complaint of questionable stroke that there is no new issue. I also would check an EKG, troponin, laboratory studies. Her blood pressure seems to be well controlled now. Will give her Ativan 1 mg orally as well. And disposition pending findings on her labs and imaging. Addendum 1:40 p.m.: The patient has laboratory studies that reveal elevated liver function tests, borderline elevated nonfasting glucose. The patient has not had any abdominal symptoms. Her head CT scan shows no evidence of current or old stroke. I interpreted this independently myself and then reviewed the radiology read. Patient feels better and less anxious after the Ativan has been given. Her blood pressure remained stable I think it be reasonable to allow her to go home rest light activity continue her medications at home. Follow up with regular doctor for repeat liver function tests in the next few days. Recommend no alcohol no Tylenol, and as she does not have symptoms of hepatitis I think observation would be appropriate, she also has no abdominal pain. Recheck as above. Lab Data Labs: Lab Results 07/13/24 07/13/24 Range/Units 12:28 12:48 WBC 7.80 (4.50-11.00) K/uL RBC 4.30 (4.00-5.20) m/uL Hgb 11.8 L (12.0-16.0) gm/dL Hct 37.4 (33.0-51.0) % MCV 87 (80-100) fL MCH 27 (26-34) pg MCHC 32 (32-36) gm/dL RDW Coeff of Lorelei 13.3 (11.5-15.5) % Plt Count 227 (140-440) K/uL Neut % (Auto) 62.7 (42.0-72.0) % Lymph % (Auto) 22.6 (20-44) % [place] % (Auto) 11.0 (0.0-11.0) % Eos % (Auto) 2.4 (0.0-7.0) % Baso % (Auto) 0.3 (0.0-3.0) % Neut # (Auto) 4.89 (1.7-7.0) K/uL Lymph # (Auto) 1.76 (0.90-2.90) K/uL [place] # (Auto) 0.90 (0.00-0.90) K/UL Eos # (Auto) 0.19 (0.00-0.50) K/uL Baso # (Auto) 0.02 (0.00-0.30) K/uL Abs Immat Gran (auto) 0.08 (0.00-0.30) K/uL Imm/Tot Granulo (auto) 1.0 % Sodium 139 (135-149) mmol/L Potassium 3.7 (3.6-5.1) mmol/L Chloride 105 (96-114) mmol/L Carbon Dioxide 28 (20-32) mmol/L Anion Gap 6 L (7-15) mEq/L BUN 15 (7-30) mg/dL Creatinine 0.7 (0.5-1.5) mg/dL Estimated Creat Clear 75.20 Estimated GFR 105 ml/min Glucose 158 H (60-115) mg/dL Calcium 8.9 (8.4-10.6) mg/dL Total Bilirubin 0.4 (0.1-1.5) mg/dL Direct Bilirubin 0.3 (0.0-0.5) mg/dL AST 183 H (12-35) U/L ALT 268 H (4-35) U/L Alkaline Phosphatase 110 (40-150) U/L C-Reactive Protein 0.7 (0.5-1.0) mg/dL Total Protein 7.5 (6.0-8.3) g/dL Albumin 4.2 (3.3-5.0) g/dL POC Troponin I 0.00 L (0.01-0.04) ng/ml Discharge Plan Discharge Clinical Impression: Anxiety, Hypertension, Elevated liver function tests Patient Disposition: Home w/ Parent or Adult Condition: Improved Additional Instructions: Light activity, continue home medications, recommend you avoid Tylenol or alcohol for the next few days, recheck with your regular doctor and your liver tests were little elevated these need to be retested. Activity Level: Light activity Discharge Diet: Regular Prescriptions: No Action mupirocin 2 % ointment 1 applic topical BID Qty: 15 0RF amlodipine 5 mg tablet 5 mg PO DAILY fluoxetine 20 mg capsule 20 mg PO DAILY Patient Comments: [NO ORIGINAL SIG] Follow Up/Referrals: Provider,Not a Local [Primary Care Provider, Family Practice] Stand Alone Forms: [place] Info Instructions
[2024-07-13] MEDS: LORazepam 1 MG TABLET PO (12:40)
[2024-07-13 12:57] LABS: Basophils Absolute Auto 0.02 K/uL (0.00-0.30); Basophils Percent Auto 0.3 % (0.0-3.0); Eosinophils Absolute Auto 0.19 K/uL (0.00-0.50); Eosinophils Percent Auto 2.4 % (0.0-7.0); Hematocrit 37.4 % (33.0-51.0); Hemoglobin* 11.8 gm/dL (12.0-16.0); Immature Granulocytes Abs Auto 0.08 K/uL (0.00-0.30); Lymphocytes Absolute Auto 1.76 K/uL (0.90-2.90); Lymphocytes Percent Auto 22.6 % (20-44); Mean Corpuscular HGB Conc 32 gm/dL (32-36); Mean Corpuscular Hemoglobin 27 pg (26-34); Mean Corpuscular Volume 87 fL (80-100); Neutrophils Absolute Auto 4.89 K/uL (1.7-7.0); Neutrophils Percent Auto 62.7 % (42.0-72.0); Platelet Count* 227 K/uL (140-440); RDW Coefficient of Variation % 13.3 % (11.5-15.5)
[2024-07-13 12:59] LABS: Slide Review Reflex No
[2024-07-13 13:24] LABS: Albumin* 4.2 g/dL (3.3-5.0); Chloride* 105 mmol/L (96-114); Sodium* 139 mmol/L (135-149)
[2024-07-13 13:25] LABS: Potassium* 3.7 mmol/L (3.6-5.1)
[2024-07-13 13:27] LABS: Blood Urea Nitrogen* 15 mg/dL (7-30); Creatinine* 0.7 mg/dL (0.5-1.5); Estimated Glomerular Filt Rate 105 ml/min
[2024-07-13 13:28] LABS: Alanine Aminotransferase* 268 U/L (4-35); Alkaline Phosphatase* 110 U/L (40-150); Anion Gap 6 mEq/L (7-15); Aspartate Amino Transferase* 183 U/L (12-35); Bilirubin Direct* 0.3 mg/dL (0.0-0.5); Bilirubin Total* 0.4 mg/dL (0.1-1.5); Calcium* 8.9 mg/dL (8.4-10.6); Carbon Dioxide* 28 mmol/L (20-32); Glucose* 158 mg/dL (60-115); Total Protein* 7.5 g/dL (6.0-8.3)
[2024-07-13 13:31] LABS: C Reactive Protein* 0.7 mg/dL (0.5-1.0)
== END 2024-07-13 13:49 | disposition home or self-care (01) ==
PROVIDERS: Emergency Provider Family Medicine
DX: F41.9 Anxiety disorder, unspecified (principal); I10 Essential (primary) hypertension; R79.89 Other specified abnormal findings of blood chemistry; Z79.899 Other long term (current) drug therapy
CPT/HCPCS: 36415; 70450; 80048; 80076; 84484; 85025; 86140; 93005; 99284; 99285; A9270

== ENCOUNTER 2024-08-09 13:23 | Emergency (ER) | payer MEDICAID, SELFPAY ==
--- OUTSIDE RECORDS SUMMARY | 2024-08-09 13:25 | XMS_ITS | Clinical Summary ---
Author Organization [employer] [facility] Address [address] [place] [address] Care Team Providers Care Pelt Salter Name Role Phone Crispin Ordoñez MD Primary Care P roder Allergies Active Allergy Reactions Criticality Noted Date Comments Latex Rash 04/30/2015 Penicillins Rash Medium 01/18/2006 Shellfish Containing Products Nausea And Vomiting Medium 08/20/2015 Medications tacrolimus (PROTOPIC) 0.1 % ointmentIndicatio ns:Vitiligo Apply topically to affected area(s) two times daily. 100 g 11 4 Active prochlorperazine (COMPAZINE) 5 mg tabletIndications :Nausea and vomiting, unspecified vomiting type Take 1 Tablet (5 mg) by mouth every 6 hours if needed for Nausea/Vomitin g. 30 Tablet 5 Active naproxen (NAPROSYN) 500 mg tabletIndications :Facial pain Take 1 Tablet (500 mg) by mouth every 12 hours if needed for Pain or Headache. 30 Tablet 5 Active ruxolitinib (Opzelura) 1.5 % creaIndications:V itiligo Apply topically to affected area(s) two times daily. 60 g 3 5 Active FLUoxetine 40 mg capsuleIndication s:Depression, recurrent,MALU (generalized anxiety disorder) Take 1 Capsule (40 mg) by mouth once daily. 90 Capsule 3 5 Active amLODIPine 5 mg tabletIndications :HTN (hypertension) Take 1 Tablet (5 mg) by mouth once daily. 90 Tablet 3 5 Active lisinopriL 20 mg tabletIndications :Essential hypertension Take 1 Tablet (20 mg) by mouth once daily. 60 Tablet 5 Active budesonide-formot Martina (Symbicort) 80-4.5 mcg/actuation (80-4.5 mcg each actuation) inhalerIndication s:Moderate asthma with exacerbation, unspecified whether persistent (HC) INHALE 2 PUFFS TWICE DAILY AND 1-2 PUFFS EVERY 4 HOURS NEEDED FOR ASTHMA EXACERBATIONS. MAX: 8 PUFFS/D 10.2 g 5 5 Active rosuvastatin 20 mg tabletIndications :Hypercholesterol emia with LDL greater than 190 mg/dL Take 1 Tablet (20 mg) by mouth at bedtime. 90 Tablet 3 5 Active Active Problems Problem Noted Date Diagnosed Date Hepatic steatosis 07/28/2024 Cervical cancer screening 07/26/2024 Overview (07/26/2024): Per 07/05/2024 OV: Was told that in [place] she needed to have surgery/cryo in the past. 25 years ago, but it cleared without difficulty. 06/2024 NIL/HPV negative. Pap/HPV due 06/2027. Hypercholesterolemia with LDL greater than 190 m g/dL 07/14/2024 Moderate asthma with exacerbation 03/17/2024 MALU (generalized [...] Recent encounter dx: 05/26/23: Office Visit - [facility] Recent notes: 03/17/24: Progress Notes - Office visit by Crispin Ordoñez MD ... [+] ? Bulimia nervosa 12/14/23: Progress Notes - Office visit by Crispin Ordoñez MD ... [-] bulimia nervosa? 05/26/23: Progress Notes by Kim Shannon DO (from Critical access hospital) ... [+] Bulimia nervosa 01/11/19: ED Notes - ED Provider Notes by Ed Bhat MD (from [facility]) ... [+] Bulimia nervosa Anxiety 06/18/15: Record - [facility] by ARIADNA BURR ... [-] Bulimia nervosa [...] AMA, bulimia, and obesity. 06/18/15: Record - [facility] by ARIADNA BURR ... [-] agree with [facility] for bulimia. Essential hypertension 09/06/2014 Moderate [...] Encounters Date Type Department Care Team Description 08/01/2024 2:00 PM CDT Nurse/Clinic Staff Only [facility] [address] [facility] [place] [address] Procedure (uvb) 08/01/2024 Travel 07/31/2024 Orders Only [facility] [place] [address] [facility] [place] [address] Crispin Ordoñez MD <No scans attached> 07/28/2024 10:30 AM CDT Ancillary Procedure [facility] [place] [address] [facility] [address] 07/28/2024 Travel 07/22/2024 3:00 PM CDT Nurse/Clinic Staff Only [facility] [address] [place] [address] Procedure (uvb) 07/22/2024 Travel 07/21/2024 Telephone [facility] [place] [address] [facility] [address] Crispin Ordoñez MD Follow Up (Blood pressure) 07/20/2024 Telephone [facility] [address] [place] [address] Maci Rosario MD Questions (COMBINE APPT 08/08/24 AND 08/09/24 ) 07/19/2024 Travel 07/15/2024 3:00 PM CDT Nurse/Clinic Staff Only [facility] [address] [place] [address] Procedure (uvb) 07/15/2024 Travel 07/14/2024 Orders Only [facility] [place] [address] [facility] [place] [address] Crispin Ordoñez MD <No scans attached> 07/13/2024 11:30 AM CDT Orders Only [facility] [place] [address] [facility] [place] [address] Lab, [place] Lab 07/13/2024 Nurse Triage [facility] [place] [address] [place] [address] Claudia Gillis, JARRELL High Blood Pressure (Walked in with symptoms of high BP and blurry vision) 07/13/2024 Travel 07/10/2024 Travel 07/06/2024 2:40 PM CDT Office Visit [facility] [place] [address] [place] [address] Crispin Ordoñez MD Follow Up (Follow Up on everything she says ) 07/06/2024 Travel 07/05/2024 2:25 PM CDT Office Visit [facility] [place] [address] [place] [address] hCelsea Arias MD Finisher Hot Strip Exam 07/04/2024 3:00 PM CDT Nurse/Clinic Staff Only [facility] [address] [place] [address] Procedure (uvb) 07/04/2024 Travel 06/27/2024 3:00 PM CDT Nurse/Clinic Staff Only [facility] [address] [place] [address] Procedure (uvb) 06/27/2024 Travel 06/23/2024 Travel 06/13/2024 3:00 PM CDT Nurse/Clinic Staff Only [facility] [address] [place] [address] Procedure (uvb) 06/13/2024 Travel 06/06/2024 3:00 PM CDT Nurse/Clinic Staff Only [facility] [address] [place] [address] Procedure (uvb) 06/06/2024 Travel 06/01/2024 4:00 PM CDT Ancillary Procedure [facility] [place] [address] [facility] [place] [address] 06/01/2024 2:40 PM CDT Office Visit [facility] [place] [address] [facility] [place] [address] Crispin Ordoñez MD Medication Management 06/01/2024 Travel 05/30/2024 2:30 PM CDT Nurse/Clinic Staff Only [facility] [address] [place] [address] Procedure (uvb) 05/30/2024 Travel 05/23/2024 3:00 PM CDT Nurse/Clinic Staff Only [facility] [address] [place] [address] Procedure (uvb) 05/23/2024 Travel 05/23/2024 Refill [facility] [place] [address] [place] [address] Elida Yan, Refill Request (FLUOXETINE HCL 20MG CAP) 05/16/2024 3:00 PM CDT Nurse/Clinic Staff Only [facility] [address] [place] [address] Procedure (uvb) 05/16/2024 Telephone [facility] [address] [place] [address] Maci Rosario MD Prior Authorization (ruxolitinib (Opzelura) 1.5 % cream (APPROVED May 17, 2024 to May 17, 2025)) 05/16/2024 Telephone [facility] [address] [facility] [address] [place] [address] Maci Rosario MD Prior Authorization 05/16/2024 Travel 05/10/2024 4:00 PM CDT Office Visit [facility] [address] [facility] [address] [place] [address] Maci Rosario MD Derm Problem 05/10/2024 Travel from Last 3 Months Immunizations Immunization [...] on file Legal Sex Female 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 Gender Identity Not on file Sexual Orientation Not on file Obstetrics History Para Term AB IAB SAB Ectopic Multiple Livin g Live Births 10 8 3 5 1 0 1 0 0 7 7 Date Outcome GA Total Labor Labor//3rd Weight Sex Type Anes PTL Chely A1 [...] 36.9 C (98.5 F) 04/02/2024 4:17 PM TELEVISION ACTOR Respiratory Rate 18 04/02/2024 4:17 PM TELEVISION ACTOR Oxygen Saturation 99% 07/06/2024 2:30 PM CDT Inhaled Oxygen Concentration - - Weight 85.5 kg (188 lb 6.4 oz) 07/06/2024 2:30 P M CDT Height 157.5 cm (5' 2) 04/02/2024 4:17 PM TELEVISION ACTOR Body Mass Index 34.46 04/02/2024 4:17 PM TELEVISION ACTOR Plan of Treatment Upcoming Encounters Date Type Department Care Team (Latest Contact Info) Description 08/23/2024 8:00 AM CDT Appointment [facility] [address] [place] [address] 08/31/2024 3:00 PM CDT Nurse/Clinic Staff Only [facility] [address] [place] [address] 08/31/2024 3:30 PM CDT Office Visit [facility] [address] [place], [place] [address] Maci Rosario MD [address], [place] [id number] Scheduled Procedures Name Priority Associated Diagnoses Date/Ti [...] 2024 11/27/2014, 11/17/2012, 12/11/2011, Additional history exists Tetanus booster 04/03/2025 04/03/2015, 02/05/2012 Depression screening for age 12+ 06/01/2025 06/01/2024, 03/18/2024, 03/18/2024, Additional history exists Mammogram for age 45-75 06/01/2025 06/01/2024 Pap test for age 21-65 07/06/2027 07/05/2024, 2024 Lipids for age 45-75 07/13/2029 07/13/2024, 12/02/2019 (Verified in Care Everywhere or Patient Record) HIV for age 15-65 Addressed 11/27/2014 (Ve rified in Care Everywhere or Patient Record) Overridden with the intention of not completing the topic Tdap Completed 04/03/2015, 02/05/2012 Hepatitis C screening for age 18-79 Completed 07/13/2024, 03/05/2012 (Verified in Care Everywhere or Patient Record) Procedures Procedure Name Priority Date/Time Associated Diagnosis Comments US ABDOMEN LIMITED LIVER Routine 07/28/2024 10:52 AM CDT Elevated transaminase level COMP METABOLIC PANEL Routine 07/13/2024 11:12 AM CDT Essential hypertension Elevated LFTs ANTI HBS QUANT AHS Routine 07/13/2024 11 :12 AM CDT Elevated LFTs HBSAG (HBS) Routine 07/13/2024 11:12 AM CDT Elevated LFTs ANTI HBC Routine 07/13/2024 11:12 AM CDT Elevated LFTs ANTI HCV Routine 07/13/2024 11:12 AM CDT Elevated LFTs LIPID PANEL Routine 07/13/2024 11:12 AM CDT Screening cholesterol level TRANSFORMATION COACH THIN PREP PAP SCREEN IMAGED Routine 07/05/2024 3:11 PM CDT Screening for cervical cancer HPV HIGH RISK Routine 07/05/2024 3:11 PM CDT Screening for cervical cancer XR MAMMO DRE BILAT SCREEN Routine 06/01/2024 4:13 PM CDT Encounter for screening mammogram for malignant neoplasm of breast from Last 3 Months Results * US ABDOMEN LIMITED LIVER (07/28/2024 10:52 AM CDT) Anatomical Region Laterality Modality LIVER Ultrasound 07/28/2024 11:2 8 AM CDT Impressions 07/28/2024 11:28 AM CDT 1. Diffuse hepatic steatosis. 2. 5 millimeter gallbladder wall polyp, new. Dictated by Sundar Ambriz MD @ 07/28/2024 11:28:58 AM (Electronically Signed) Narrative 07/28/2024 11:28 AM CDT For Patients: As a result of the Cures Act, medical imaging exams and procedure reports are released immediately into your electronic medical record. You may view this report before your referring provider. If you have questions, please contact your health care provider. INDICATION: Elevated transaminase levels. TECHNIQUE: Ultrasound abdomen limited. Sonographic images of the right upper quadrant were obtained using kc-scale and color Doppler images. COMPARISON: Gallbladder ultrasound 08/26/2014. FINDINGS: Liver: Diffuse hepatic steatosis. No hepatic mass or duct dilatation. Gallbladder: 5 millimeter gallbladder wall polyp, new since the previous ultrasound. No gallstones or pericholecystic fluid. Common bile duct: Normal caliber common bile duct measuring 4 mm. Pancreas: Suboptimal visualization of the tail of the pancreas. No focal abnormality or duct dilatation identified within the pancreas head, neck or body. Right kidney: Normal in size. No renal stone, focal renal lesion or hydronephrosis identified. Vasculature: Patent IVC. The abdominal aorta measures 2.6, 1.9 and 1.5 cm at its proximal, mid and distal 3rd. Procedure Note Sundar Ambriz MD - 07/28/2024 For Patients: As a result of the Cures Act, medical imagingexams and procedure reports are released immediately into your electronicmedical record. You may view this report before your referring provider.If you have questions, please contact your health care provider. INDICATION: Elevated transaminase levels. TECHNIQUE: Ultrasound abdomen limited. Sonographic images of the right upperquadrant were obtained using kc-scale and color Doppler images. COMPARISON: Gallbladder ultrasound 08/26/2014. FINDINGS: Liver: Diffuse hepatic steatosis. No hepatic mass or duct dilatation. Gallbladder: 5 millimeter gallbladder wall polyp, new since the previousultrasound. No gallstones or pericholecystic fluid. Common bile duct: Normal caliber common bile duct measuring 4 mm. Pancreas: Suboptimal visualization of the tail of the pancreas. No focalabnormality or duct dilatation identified within the pancreas head, neckor body. Right kidney: Normal in size. No renal stone, focal renal lesion orhydronephrosis identified. Vasculature: Patent IVC. The abdominal aorta measures 2.6, 1.9 and 1.5 cmat its proximal, mid and distal 3rd. IMPRESSION: 1. Diffuse hepatic steatosis. 2. 5 millimeter gallbladder wall polyp, new. Dictated by Sundar Ambriz MD @ 07/28/2024 11:28:58 AM (Electronically Signed) Crispin Ordoñez MD US Final Result * HBSAG (HBS) (07/13/2024 11:12 AM CDT) HEPATITIS B SURFACE ANTIGEN NON-REACTI VE NON-REACTI VE [facility] Comment: For additional information, please refer to http://Materialise.Roomer Travel/faq/BUB423 (This link is being provided for informational/ educational purposes only.) Blood BLOOD SPECIMEN / Unknown 07/13/2024 11:12 AM CDT 07/13/2024 11:16 AM CDT Narrative [facility] - 07/14/2024 7:09 AM CDT FASTING:NO FASTING: NO Crispin Ordoñez MD SEND OUTS Final Result [employer] [facility] [address] [place] [address], [facility] [address] [place] [address] * ANTI HCV (07/13/2024 11:12 AM CDT) HEPATITIS C ANTIBODY NON-REACTI VE NON-REACT SASCHA [facility] Comment: HCV antibody was non-reactive. There is no laboratory evidence of HCV infection. In most cases, no further action is required. However, if recent HCV exposure is suspected, a test for HCV RNA (test code 07786) is suggested. For additional information please refer to http://Materialise.Roomer Travel/faq/SDP69a9 (This link is being provided for informational/ educational purposes only.) Blood BLOOD SPECIMEN / Unknown 07/13/2024 11:12 AM CDT 07/13/2024 11:16 AM CDT Narrative [facility] - 07/14/2024 7:09 AM CDT FASTING:NO FASTING: NO Crispin Ordoñez MD SEND OUTS Final Result Performing Organization Address [facility]/ZIP Co de Phone Number [facility] [address] [place] [address], [facility] [address] [place] [address] * (ABNORMAL) ANTI HBS QUANT AHS (07/13/2024 11:12 AM CDT) HEPATITIS B SURFACE AB IMMUNITY, QN <5(L) > OR = 10 mIU/mL [facility] Comment: Patient does not have immunity to hepatitis B virus. For additional information, please refer to http://education.Roomer Travel/faq/ICF141 (This link is being provided for informational/ educational purposes only). Blood BLOOD SPECIMEN / Unknown 07/13/2024 11:12 AM CDT 07/13/2024 11:16 AM CDT Narrative [facility] - 07/14/2024 7:09 AM CDT FASTING:NO FASTING: NO Crispin Ordoñez MD SEND OUTS Final Result Performing Organization Address [facility]/ZIP Co de Phone Number [facility] [address] [place] [address], [facility] [address] [place] [address] * ANTI HBC (07/13/2024 11:12 AM CDT) HEPATITIS B CORE AB TOTAL NON-REACTI VE NON-REACTI VE [facility] Comment: For additional information, please refer to http://education.Roomer Travel/faq/RYD168 (This link is being provided for informational/ educational purposes only.) Blood BLOOD SPECIMEN / Unknown 07/13/2024 11:12 AM CDT 07/13/2024 11:16 AM CDT Narrative [facility] - 07/14/2024 7:09 AM CDT FASTING:NO FASTING: NO Crispin Ordoñez MD SEND OUTS Final Result [employer] [facility] [address] [place] [address], [facility] [address] [place] [address] * (ABNORMAL) LIPID PANEL (07/13/2024 11:12 AM CDT) CHOLESTEROL, TOTAL 292(H) <200 mg/dL [facility] HDL CHOLESTEROL 68 > OR = 50 mg/dL [facility] TRIGLYCERIDES 136 <150 mg/dL [employer] LDL-CHOLESTEROL 195(H) mg/dL (calc) [facility] Comment: LDL-C levels > or = 190 mg/dL may indicate familial hypercholesterolemia (FH). Clinical assessment and measurement of blood lipid levels should be considered for all first degree relatives of patients with an FH diagnosis. LDL Cholesterol (LDL-C) levels > or = 300 mg/dL may indicate homozygous familial hypercholesterolemia (HoFH). Untreated, these extremely high LDL-C levels can result in premature CV events and mortality. Patients should be identified early and provided appropriate interventions to reduce the cumulative LDL-C burden from . For questions about testing for familial hypercholesterolemia, please call [employer] Client Services at [email or web address]. Eladio Smith, et al. J National Lipid Association Recommendations for Patient-Centered Management of Dyslipidemia: Part 1 Journal of Clinical Lipidology 2015;9(2), 129-169. Swathi Schwartz et al. (2014). Homozygous familial hypercholesterolaemia: new insights and guidance for clinicians to improve detection and clinical management. Heart Journal, 35(32), 0727-4573. Reference range: <100 Desirable range <100 mg/dL for primary prevention; <70 mg/dL for patients with CHD or diabetic patients with > or = 2 CHD risk factors. LDL-C is now calculated using the Prakash calculation, which is a validated novel method providing better accuracy than the Friedewald equation in the estimation of LDL-C. Mnior MCKENNA et al. RICK. 2013;310(19): 6989-6253 (http://education.STYLHUNT/faq/IKM573) CHOL/HDLC RATIO 4.3 <5.0 (calc) [facility] NON HDL CHOLESTEROL 224(H) <130 mg/dL (calc) [facility] Comment: Non-HDL level > or = 220 is very high and may indicate genetic familial hypercholesterolemia (FH). Clinical assessment and measurement of blood lipid levels should be considered for all first-degree relatives of patients with an FH diagnosis. For patients with diabetes plus 1 major ASCVD risk factor, treating to a non-HDL-C goal of <100 mg/dL (LDL-C of <70 mg/dL) is considered a therapeutic option. Blood BLOOD SPECIMEN / Unknown 07/13/2024 11:12 AM CDT 07/13/2024 11:16 AM CDT Narrative [facility] - 07/14/2024 5:17 AM CDT FASTING:NO FASTING: NO Crispin Ordoñez MD CHEMISTRY Final Result [employer] [facility] [address] [place] [address], [facility] [address] [place] [address] * (ABNORMAL) COMP METABOLIC PANEL (07/13/2024 11:12 AM CDT) Pathologist [facility] GLUCOSE 155(H) 65 - 139 mg/dL [facility] Comment: Non-fasting reference interval UREA NITROGEN (BUN) 15 7 - 25 mg/dL [facility] CREATININE 0.72 0.50 - 1.03 mg/dL [facility] EGFR 101 > OR = 60 mL/min/1. 73m2 [facility] BUN/CREATININE RATIO SEE NOTE: (calc) [facility] Comment: Not Reported: BUN and Creatinine are within reference range. SODIUM 141 135 - 146 mmol/L [facility] POTASSIUM 3.9 3.5 - 5.3 mmol/L [facility] CHLORIDE 104 98 - 110 mmol/L [facility] CARBON DIOXIDE 28 20 - 32 mmol/L [facility] CALCIUM 9.1 8.6 - 10.4 mg/dL [facility] PROTEIN, TOTAL 7.2 6.1 - 8.1 g/dL [facility] ALBUMIN 3.9 3.6 - 5.1 g/dL [facility] GLOBULIN 3.3 1.9 - 3.7 g/dL (calc) [facility] ALBUMIN/GLOBULIN RATIO 1.2 1.0 - 2.5 (calc) [facility] BILIRUBIN, TOTAL 0.3 0.2 - 1.2 mg/dL [facility] ALKALINE PHOSPHATASE 114 37 - 153 U/L [facility] AST 123(H) 10 - 35 U/L [facility] ALT 211(H) 6 - 29 U/L [facility] Blood BLOOD SPECIMEN / Unknown 07/13/2024 11:12 AM CDT 07/13/2024 11:16 AM CDT Narrative [facility] - 07/14/2024 5:17 AM CDT FASTING:NO FASTING: NO Crispin Ordoñez MD CHEMISTRY Final Result [employer] [facility] [address] [place] [address], [facility] [address] [place] [address] * TRANSFORMATION COACH THIN PREP PAP SCREEN IMAGED [[id number]] (07/05/2024 3:11 PM CDT) Case Report Gynecologic Cytology Report Case: [id number] Authorizing Provider: Chelsea Arias MD Collected: 07/05/2024 1511 Ordering Location: [facility] Received: 07/05/2024 1511 Clinic First Screen: Yuliana Nichole Specimen: TRANSFORMATION COACH ThinPrep Vial Screening, Cervical 07/19/2024 1:59 PM CDT [facility] [employer]- ENTRAL LABORATORY INTERPRETATION/ RESULT NEGATIVE FOR INTRAEPITHELIAL LESION OR MALIGNANCY (NIL) (none) 07/19/2024 1:59 PM CDT [facility] at 1359 CDT SPECIMEN ADEQUACY Satisfactory for evaluation Endocervical component present 07/19/2024 1:59 PM CDT [facility] HPV REQUEST HPV and PAP 07/19/2024 1:59 PM CDT [facility] Date of LMP postmenopausal 1:59 PM CDT [facility] [employer] ENTRAL LABORATORY Last Pap Date unknown 07/19/2024 1:59 PM CDT [facility] Last Pap Result First Pap/Unknown 1:59 PM CDT [facility] Abnormal Pap or [place] Bx in last 5 years No 07/19/2024 1:59 PM CDT [facility] Menstrual Status Postmenopausal 07/19/2024 1:59 PM CDT [facility] [employer] [facility] EN[facility] LAB[facility] [place] Bx Done Today No 07/19/2024 1:59 PM CDT [facility] [employer] [facility] Additional Information None given 07/19/2024 1:59 PM CDT [facility] [employer] [facility] Comment: Cytology is screened at [facility] - [address], [place] [address] and [facility] - [address] [place] [address], [place] [address] and [facility] - [address] [place] [address] Interpreted at [facility] - [address], [place] [address] Automated Review Successful 07/19/2024 1:59 PM CDT [facility] Comment:Specimen processed s uccessfully by automated automotive lot attendant device, ThinPrep Imaging System, [employer] ANCILLARY TESTING TRANSFORMATION COACH HPV Ordered, Please see separate report 07/19/2024 1:59 PM CDT [facility] Note The pap test is a screening technique, not a diagnostic procedure. It is used primarily to screen for squamous cancers and precursor lesions. Published studies have shown that it is subject to both false negative and false positive results. The pap test should not be used as the sole means to diagnose or exclude pre-malignant and malignant lesions. 07/19/2024 1:59 PM CDT [facility] Other (Cervical) Non-Blood / Unknown 07/05/2024 3:11 PM CDT 07/05/2024 3:11 PM CDT us Chelsea Arias MD PATHOLOGY/CYTOLOGY Final Re sult [facility] [address] [place] [address], * HPV HIGH RISK (07/05/2024 3:11 PM CDT) TYPE 16 Negative Negative 07/08/2024 2:58 PM CDT [facility] TRAL LABORATORY TYPE 18 Negative Negative 07/08/2024 2:58 PM CDT [facility] TR[facility] OTHER HIGH RISK TYPES Negative Negative 07/08/2024 2:58 PM CDT [facility] Other (Cervical) Non-Blood / Unknown 07/05/2024 3:11 PM CDT 07/06/2024 11:42 AM CDT Narrative [facility] - 07/08/2024 2:58 PM CDT HPV types 16, 18, 31, 33, 35, 39, 45, 51, 52, 56, 58, 59, 66 and 68 DNA were undetectable or below the pre-set threshold. Methodology: Arminda Makenzie 4800 HPV Test us Chelsea Arias MD MICROBIOLOGY Final Resul t [facility] [address] [place] [address], * XR MAMMO DRE BILAT SCREEN (06/01/2024 [...] care provider. XR MAMMO DRE BILAT SCREEN [[id number]] CLINICAL HISTORY: This is an asymptomatic 53 y.o. patient. INDICATION FOR EXAM: Mammogram Screening. TECHNIQUE: CC and MLO views were obtained. This study was evaluated with the assistance of Computer-Aided Detection. Breast Tomosynthesis was used in interpretation. COMPARISON FILM: Yes 10/04/14 [facility] [place] 09/12/14 [facility] FINDINGS: There are scattered areas of fibroglandular density. There are no dominant masses, suspicious micro calcifications or areas of architectural distortion. Crispin Ordoñez MD MAMMO Final Result from Last 3 Months Insurance [facility] Advance Directives * Full Code (Latest Code [...] 8:27 PM 05/01/2015 12:58 AM Care Teams Pelt Salter Relationship Specialty Start Date End Date Crispin Ordoñez MD [address] [place] [address] PCP - General Family Practice 12/14/23
[2024-08-09 14:00] VITALS: BP 180/120; PULSE 118; RESP 20; TEMP 36.6; O2SAT 98
--- NOTE | 2024-08-09 14:05 | CRLHL7_ITS ---
For Patients: As a result of the Century Cures Act, medical imaging exams and procedure reports are released immediately into your electronic medical record. You may view this report before your referring provider. If you have questions, please contact your health care provider. Indication: Left foot pain and swelling Technique: Three views left foot Comparison: None Findings/Impression: Bones: Alignment is normal. No fractures or bone lesions. Joint spaces: Unremarkable. Soft tissues: Mild forefoot soft tissue swelling. Dictated by Catrachito Jimenes MD @ 08/09/2024 2:40:56 PM (Electronically Signed)
--- NOTE | 2024-08-09 15:41 | ED.LOWEXIN ---
HPI - Extremity Injury (Lower) General Time Seen by Provider: 15:42 Date Seen: 08/09/24 Chief Complaint: Extremity Pain/Injury, Lower Stated Complaint: hurt left foot Time Seen by Provider: 08/09/24 15:41 Source: patient and RN notes reviewed Mode of arrival: ambulatory Limitations: no limitations History of Present Illness HPI Narrative: This 53-year-old female is coming in with complaint of left foot pain after tripping and twisting her foot. She was wearing thicker sold sandals and twisted this foot. She is complaining pain on the lateral side, bottom of her foot. She states it does hurt to bear weight. Nothing else was injured. She does not have any ankle pain. No numbness or tingling. Related Data Home Medications ?Medication ?Instructions ?Recorded ?Confirmed amlodipine 5 mg tablet 5 mg PO DAILY 03/23/24 08/09/24 fluoxetine 20 mg capsule 20 mg PO DAILY 03/23/24 08/09/24 Previous Rx's ?Medication ?Instructions ?Recorded mupirocin 2 % topical ointment 1 applic topical BID #15 grams 01/20/24 Allergies Allergy/AdvReac Type Severity Reaction Status Date / Time Penicillins Allergy Intermediate Rash Verified 08/09/24 13:59 Review of Systems Narrative: As per HPI. PFSH PFSH Social History service: No Exam Const: Vital Signs, click to edit/add: Vital Signs - 24 hr 08/09/24 14:00 Temperature 97.8 F Pulse Rate [Pulse Oximeter] 118 H Respiratory Rate 20 Blood Pressure [Ri ght Upper Arm] 180/120 H Pulse Oximetry 98 Oxygen Delivery Me thod Room Air This patient is seen in triage due to the acuity and volume in the ED. I am aware that her x-rays have been read negative. On inspection of her left foot see no significant swelling, no erythema, no ecchymosis. She can dorsiflex and plantar flex her foot, Achilles is nontender, nontender over the malleoli of the ankle. Full range of motion about the ankle, ankle mortise intact, no joint effusion. She complains of pain in the midfoot in along the arch of her foot but there is no definite palpable tenderness. She tolerates examination quite well. There is certainly no 5th metatarsal tenderness. Neurovascular is intact. She can mobilize her toes, has normal light touch sensation of all of her toes. I really see no evidence of any traumatic change, she would has really no significant palpable tenderness in any discernible pattern that is concerning at this time, really not tender anywhere I palpate. Documenting provider has reviewed patient's vital signs: yes Course Course ED Course: Was able to review with patient that the x-ray images were negative. Nursing staff full trial ambulation, discharge to home. If she cannot ambulate comfortably, may need to give crutches. Vital Signs Vital signs: Initial Vital Signs Temperature 97.8 F 08/09/24 14:00 Temperature Source Temporal Artery Scan 08/09/24 14:00 Pulse Rate 118 H 08/09/24 14:00 Respiratory Rate 20 08/09/24 14:00 Blood Pressure 180/120 H 08/09/24 14:00 Blood Pressure Mean 140 H 08/09/24 14:00 Pulse Oximetry 98 08/09/24 14:00 Oxygen Delivery Method Room Air 08/09/24 14:00 Vital Signs Temperature 97.8 F 08/09/24 14:00 Pulse Rate 118 H 08/09/24 14:00 Respiratory Rate 20 08/09/24 14:00 Blood Pressure 180/120 H 08/09/24 14:00 Pulse Oximetry 98 08/09/24 14:00 Oxygen Delivery Method Room Air 08/09/24 14:00 Temperature 97.8 F 08/09/24 14:00 Pulse Rate 118 H 08/09/24 14:00 Respiratory Rate 20 08/09/24 14:00 Blood Pressure 180/120 H 08/09/24 14:00 Pulse Oximetry 98 08/09/24 14:00 Oxygen Delivery Method Room Air 08/09/24 14:00 MDM - Extremity Injury (Lower) Imaging Data XR left foot: Attestation: I have reviewed the pertinent imaging results. My impression: Did visualize foot images, do not see fracture on my preliminary review. Radiologist's impression: Patient: KEREN MALDONADO Facility:?[facility] Patient ID:?[id number] Site Patient ID:?[id number]. Site :?1970 Study:?XRay-Chest Left 3V-08/09/2024 2:36:33 PM Ordering Physician:?PROVIDER TEMP Final Report: Indication: Left foot pain and swelling Technique: Three views left foot Comparison: None Findings/Impression: Bones: Alignment is normal. No fractures or bone lesions. Joint spaces: Unremarkable. Soft tissues: Mild forefoot soft tissue swelling. Dictated by Catrachito Jimenes MD @ 08/09/2024 2:40:56 PM (Electronic Signature) Discharge Plan Discharge Clinical Impression: Strain of foot, left Patient Disposition: Home, Self-Care Condition: Stable Instructions: Foot Sprain (ED) Additional Instructions: Can walk/bear weight as tolerated. There was no evidence of any fracture on x-ray imaging. Recommend Tylenol 1000 mg 3 times a day as needed for pain management, can supplement with ibuprofen if needed per bottle directions. Ice, elevate next couple of days to decrease pain and swelling. If not improving over the next week, having worsening symptoms or concerns, recommend follow up in clinic. May need to see orthopedics if ongoing issues, your primary provider can assist with this if needed. Activity Level: Activity as Tolerated Prescriptions: No Action mupirocin 2 % ointment 1 applic topical BID Qty: 15 0RF amlodipine 5 mg tablet 5 mg PO DAILY fluoxetine 20 mg capsule 20 mg PO DAILY Patient Comments: [NO ORIGINAL SIG] Follow Up/Referrals: Provider,Not a Local [Primary Care Provider, Family Practice] Stand Alone Forms: MyHealth Info Instructions
--- OUTSIDE RECORDS SUMMARY | 2024-08-09 15:58 | XMS_ITS | Clinical Summary ---
Author Organization [facility] Address [address] [place] [address] Care Team Providers Care Hat Brusher Machine Name Role Phone Unavailable Primary Care Provider Unavailabl e Source Comments You are receiving this document as you are listed as the primary care provider,follow-up provider, or the patient has been referred to you for consultation.This is in compliance with the Medicare and[facility] Hospital[facility] EHR Incentive Program,which states Providers who transition their patient to another setting of careor provider of care or refers their patient to another provider of care shouldprovide summary care record for each transition of care or referral. [employer] Allergies Active Allergy Reactions Criticality Noted Date Comments Latex Itching,Rash 05/28/2010 Penicillins Rash 04/28/2006 Shellfish Allergy Nausea And Vomiting Medium 6 Medications * This document contains information received from the source organization and may not represent a complete record from that organization. ALBUterol sulfate HFA (PROAIR HFA) 108 (90 Base) MCG/ACT inhalerIndicatio ns:Mild asthma, unspecified whether complicated, unspecified whether persistent (HRC) Inhale 1-2 Puffs every 6 hours as needed for Wheezing. 1 Inhaler 0 Active Additional Information Patient not taking.Reported on 05/26/2023 polyethyl-propyl jose guadalupe glycol (SYSTANE) 0.4-0.3 % PF eye drops Place 1-2 Drops into left eye every 4 hours as needed for Dry Eyes. 1 Each 0 Active Additional Information Patient not taking.Reported on 05/26/2023 FLUoxetine (PROZAC) 20 MG capsule Take 1 Capsule (20 mg) by mouth daily. 90 Capsule 3 4 Active Active Problems Problem Noted Date Diagnosed Date Sleep apnea 12/02/2019 Facial droop 12/01/2019 Left arm weakness 12/01/2019 Microcytic anemia 12/01/2019 Trigger finger of right thumb 09/29/2016 Trigger middle finger of right hand 09/29/2016 Abnormal TSH 07/24/2016 Overview (08/24/2016): suppressed at 0.09 Class 1 obesity due to exces s calories without serious comorbidity with body mass index (BMI) of 30.0 to 30.9 in adult 06/18/2015 Vitamin D deficiency 01/10/2015 Bulimia nervosa 01/04/2015 Migraines 04/28/2014 Acne 04/28/2014 Insomnia 04/28/2014 Moderate episode of recurrent major depressive d isorder 04/28/2014 Anxiety 04/28/2014 Mild persistent asthma 05/10/2012 Persons encountering health services in other specified circumstances 04/07/2012 Overview (12/02/2019): EMERGENCY CARE PLAN Presenting Problem Signs and Symptoms Treatment Plan Questions or concerns during clinic hours I will call the clinic directly ([phone]) Questions or concerns outside clinic hours I will call the 24 hour nurse line at [phone] Patient needs to schedule an appointment I will call the 24 hour scheduling team at [phone] or clinic directly Same day treatment I will call the clinic first, nurse line if after hours, urgent care and express care if needed Clinic Care Coordination (RN/SW) Sophie Valenzuela RN, COMMUNICATION LECTURER DERECK CarterW, HARVEST WORKER [facility] Sophie [phone] Candace [phone] Crisis Services [facility] [phone] [facility]: [phone] Intake Behavioral Health Providers ([facility]): [phone] Immediate emergency treatment 911 DX V65.8 REPLACED WITH [id number] HEALTH LONG-TERM (05/31/2012) Encounter for screening for cardiovascular disor ders 12/23/2009 GERD (gastroesophageal reflux disease) 0 Asthma Resolved Problems Problem Noted Date Diagnosed Date Resolved Date Encounter for care or examin ation of lactating mother 06/18/2015 08/20/2015 Multigravida of advanced mat ernal age in third trimester 06/12/2015 08/20/2015 Eating disorder affecting pr egnancy, antepartum 03/06/2015 08/20/2015 Hypokalemia 03/02/2015 04/13/2015 History of delivery, currently in second trimester 02/21/2015 06/26/2015 01/05/2015 08/20/2015 CAREPLAN: [facility] DISEASE MANAGEMENT 5 08/02/2015 Overview (09/28/2015): Background: Engaged in Disease Management-Healthy : Jessica Stoll) JARRELL Mcclendon [phone] Essential hypertension 09/06/201410/19 Varicose vein of leg 04/28/2014 015 Overview (10/15/2016): Varicose veins 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 Immunizations Immunization Administration Dates Next Due Flu Vac (3+ yrs) 11/17/2012,12/11/2011, 0 Flu Vac Preserv Free (3+yrs) 01/18/2008 Influenza IIV4 (Quadrivalent) 0.5mL (66312) 06/2014,11/17/2012 TDAP (ADACEL) 02/05/2012 TDAP (BOOSTRIX) 04/03/2015 Family History Medical History Relation Name Comments Leukemia Father Other Son 1 osteosarcoma Son 2 Sebastien left leg at 10y o Cancer, Breast Negative Family History Cancer, Colon Negative Family History Cancer, Ovary Negative Family History Coronary Artery Disease Negative Family History Diabetes Negative Family History Stroke Negative Family History Thromboembolic Disease Negative Family History Relation Name Status Comments Father Son 1 Son 2 Sebastien Social History Tobacco Use Types Packs/Day Years Used Date Smoking Tobacco: Never Smokeless Tobacco: Never Alcohol Use Standard Drinks/Week Comments Not Currently 1 (1 standard drink = 0.6 oz pur e alcohol) rare Comments No Sex and Gender Information Value Date Recorded Sex Assigned at Not on file Legal Sex Female 7:13 AM CDT Gender Identity Not on file Sexual Orientation Not on file 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 Not on file Not on file Not on file Last Filed Vital Signs Vital Sign Reading Time Taken Comments Blood Pressure 143/99 05/26/2023 3:30 PM CDT Pulse 76 05/26/2023 3:30 PM CDT Temperature 36.5 C (97.7 F) 12/02/2019 3:28 PM CDT Respiratory Rate 16 12/02/2019 3:28 PM CDT Oxygen Saturation 99% 12/02/2019 3:28 PM CDT Inhaled Oxygen Concentration - - Weight 80 kg (176 lb 7 oz) 05/26/2023 3:25 PM CD T Height 154.3 cm (5' 0.73) 05/26/2023 3:25 PM CD T Body Mass Index 33.64 05/26/2023 3:25 PM CDT Plan of Treatment Health Maintenance Due Date Last Done Comments Colon Cancer Screening Plan Due 1970 Hep C Screening (Preventive Services) 1970 Tuberculosis Screening 1970 Adult Preventive Visit 1990 HepB Vaccine (1) 09/09/1991 Pneumococcal Vaccine 50+ Yrs (1 of 2 - PCV) 09/09/1991 Mammogram 09/13/2015 09/12/2014 Cervical Cancer Screening 12/09/20202017, 12/09/2017, 11/27/2014, Additional history exists Zoster/Shingles Vaccine (1 of 2) 2022 COVID-19 Vaccine (1 - season) 2023 Influenza Vaccine (Season Ended) 2024 11/27/2014, 02/18/2014 (Completed), 11/17/2012, Additional history exists Cholesterol 12/01/2024 12/02/2019, 09/24, 12/28/2014, Additional history exists DTaP/Tdap/Td Vaccine (3 - Tdap) 04/03/2025 04/03/2015, 02/05/2012 HIV Screening (Preventive Services) Completed 11/27/2014, 04/27/2007 HepA Vaccine Aged Out No longer eligi ble based on patient's age to complete this topic Hib Vaccine Aged Out No longer eligi ble based on patient's age to complete this topic IPV (Polio) Vaccine Aged Out No longe r eligible based on patient's age to complete this topic MCV4 Vaccine Aged Out No longer eligi ble based on patient's age to complete this topic Meningococcal B Vaccine Aged Out No l onger eligible based on patient's age to complete this topic Procedures Procedure Name Priority Date/Time Associated Diagnosis Comments LIPID PANEL & DIRECT LDL (IF NEEDED) Routine 12/02/2019 7:02 AM CDT ANATOMICAL PATH LIQUID BASED Routine 12/09/2017 12:42 PM CDT HIV ANTIBODY Routine 11/27/2014 9:52 AM CDT Screening examination for venereal disease MM MAMMOGRAM SCREENING BILAT W CAD Routine 09/12/2014 9:09 AM CDT Well adult exam from Last 3 Months or Most Recently Relevant to Health Maintenance Results * (ABNORMAL) Lipid Panel and Direct LDL(If Needed) (12/02/2019 7:02 AM CDT) Cholesterol 205(H) 0 - 199 mg/dL 12/02/2019 7:57 AM CDT [facility] Triglyceride 136 <=149 mg/dL 12/02/2019 7:57 AM CDT [facility] HDL Cholesterol 52 >=40 mg/dL 0 7:57 AM CDT [facility] LDL, Calculated 126 <130 mg/dL 0 7:57 AM CDT [facility] Non HDL Chol, Calculated 153 mg/dL 12/02/2019 7:57 AM CDT [facility] Cholesterol/HDL Ratio 3.9 12/02/2019 7:57 AM CDT [facility] Blood Venipuncture / Unknown 12/02/2019 7:02 AM CDT 12/02/2019 7:19 AM CDT us Josee Muñoz MD LAB_1 Final Result [facility] [address] [place] [address], [facility] * Pap Smear (12/09/2017 12:42 PM CDT) 12/09/2017 12:4 2 PM CDT Narrative AREN SUAREZ - 12/25/2017 10:32 AM CDT FINAL GYNECOLOGICAL CYTOLOGY REPORT Pathology #: [id number] Date Obtained: 12/09/2017 Date Received: 12/10/2017 INTERPRETATION/RESULTS: Negative for Intraepithelial Lesion or Malignancy. SPECIMEN ADEQUACY: Satisfactory for Evaluation. Endocervical cells/transformation zone component present. Verified on 12/20/2017 by SAQIB WESTON(ASCP) (electronic signature) CLINICAL NOTES: Abnormal bleeding: No, LMP: 11/23/17, Menstrual status: None Apply, Current form of therapy: None apply LIQUID BASED PAP SMEAR SPECIMEN TYPE: ROUTINE CERVICAL PAP TEST PLEASE NOTE: The pap smear is a screening test designed to aid in the detection of cervical cancer and its precursor lesions. It is not a diagnostic procedure and should not be used as the sole means of detecting cervical cancer. Both false-positive and false-negative reports may occur. Performed at [address] [address] us Jessica Clark MD LAB_1 Final Result [facility] [address] [place] [id number] * HIV ANTIBODY (11/27/2014 9:52 AM CDT) HIV 1/HIV 2 Non-React Non-Reacti ve HP CONVERSION 11/27/2014 9:52 AM CDT 11/27/2014 3:49 PM CDT Narrative HP CONVERSION - 11/28/2014 12:01 AM CDT Performed at [address] [address] Transcriptions 04/03/2016 2:55 AM CSTNotes Recorded by Lizzie Pizarro APRN, CNM on 11/28/2014 at 9:40 AMUA reviewed us Bridgetjalen Casper APRN, CNM LAB_1 Final Result HP CONVERSION * (ABNORMAL) MM Mammogram Screening Bilat W CAD (09/12/2014 9:09 AM CDT) Anatomical Region Laterality Modality Breast Bilateral Mammography Impressions 09/14/2014 11:48 AM CDT : BI-RADS Overall 0 - Incomplete - Need Additional Imaging Evaluation Spot Compression Views and Ultrasound - Left The results and recommendations of this examination will be communicated to the patient by the [facility] and we will attempt to schedule any recommended imaging follow up with the patient. Narrative 09/14/2014 11:48 AM CDT No comparisons were made when reading this study. FINDINGS: Bilateral screening mammogram was performed. There are scattered areas of fibroglandular density in the breasts. There is possible asymmetry in the left breast on the CC view laterally at anterior depth. No significant mass, calcifications or other abnormalities are seen in the contralateral breast. Procedure Note Duc Landeros MD - 10/18/2015 No comparisons were made when reading this study. FINDINGS: Bilateral screening mammogram was performed. There arescattered areas of fibroglandular density in the breasts. There is possible asymmetry in the left breast on the CC view laterallyat anterior depth. No significant mass, calcifications or other abnormalities are seen inthe contralateral breast. IMPRESSION : BI-RADS Overall 0 - Incomplete - Need Additional Imaging Evaluation Spot Compression Views and Ultrasound - Left The results and recommendations of this examination will be communicated to the patient by the [facility] and we will attempt to schedule any recommended imaging follow up with the patient. us Deisi Pollard MD RAD RENZO Final Result from Last 3 Months or Most Recently Relevant to Health Maintenance Advance Directives * Full Code (Latest Code Status on File) Date Activated Date Inactivated Comments 12/01/2019 9:24 PM 12/02/2019 7:25 PM Question Answer Comments On Admission, Code status wa s determined by: Not discussed with patient/family * Full Code Date Activated Date Inactivated Comments 05/05/2014 9:32 AM 05/05/2014 2:09 PM
== END 2024-08-09 16:04 | disposition home or self-care (01) ==
LOC: ED 15:56
PROVIDERS: Emergency Provider Family Medicine
DX: S96.912A Strain of unspecified muscle and tendon at ankle and foot level, left foot, initial encounter (principal); W01.0XXA Fall on same level from slipping, tripping and stumbling without subsequent striking against object, initial encounter
CPT/HCPCS: 73630; 99282; 99283

== ENCOUNTER 2024-09-21 20:57 | Emergency (ER) | payer MEDICAID, SELFPAY ==
--- OUTSIDE RECORDS SUMMARY | 2024-09-21 20:59 | XMS_ITS | Clinical Summary ---
Author Organization [facility] Address [facility] [place] [address] Care Team Providers Care Cell Biologist Name Role Phone Crispin Ordoñez MD Primary Care P h[place]onsaad Allergies Active Allergy Reactions Criticality Noted Date Comments Latex Rash 04/30/2015 Penicillins Rash Medium 01/18/2006 Shellfish Containing Products Nausea And Vomiting Medium 08/20/2015 Medications tacrolimus (PROTOPIC) 0.1 % ointmentIndicati ons:Vitiligo Apply topically to affected area(s) two times daily. 100 g 11 02/09/20 24 Active prochlorperazine (COMPAZINE) 5 mg tabletIndication s:Nausea and vomiting, unspecified vomiting type Take 1 Tablet (5 mg) by mouth every 6 hours if needed for Nausea/Vomiti ng. 30 Tablet 03/17/19 25 Active naproxen (NAPROSYN) 500 mg tabletIndication s:Facial pain Take 1 Tablet (500 mg) by mouth every 12 hours if needed for Pain or Headache. 30 Tablet 04/22/19 25 Active ruxolitinib (Opzelura) 1.5 % creaIndications: Vitiligo Apply topically to affected area(s) two times daily. 60 g 3 05/11/19 25 Active FLUoxetine 40 mg capsuleIndicatio ns:Depression, recurrent,MALU (generalized anxiety disorder) Take 1 Capsule (40 mg) by mouth once daily. 90 Capsule 3 06/02/19 25 Active amLODIPine 5 mg tabletIndication s:HTN (hypertension) Take 1 Tablet (5 mg) by mouth once daily. 90 Tablet 3 06/02/19 25 Active budesonide-formo teroL (Symbicort) 80-4.5 mcg/actuation (80-4.5 mcg each actuation) inhalerIndicatio ns:Moderate asthma with exacerbation, unspecified whether persistent (HC) INHALE 2 PUFFS TWICE DAILY AND 1-2 PUFFS EVERY 4 HOURS NEEDED FOR ASTHMA EXACERBATIONS . MAX: 8 PUFFS/D 10.2 g 5 07/07/19 25 Active rosuvastatin 20 mg tabletIndication s:Hypercholester olemia with LDL greater than 190 mg/dL Take 1 Tablet (20 mg) by mouth at bedtime. 90 Tablet 3 07/15/19 25 Active baricitinib 4 mg tabIndications:V itiligo Take 4 mg by mouth once daily. 30 Tablet 2 09/01/19 25 025 Active lisinopriL (PRINIVIL; ZESTRIL) 20 mg tabletIndication s:Essential hypertension TAKE 1 TABLET BY MOUTH EVERY DAY 30 Tablet 09/04/19 25 Active ruxolitinib 1.5 % creaIndications: Vitiligo Apply topically to affected area(s) two times daily. 60 g 5 09/08/19 25 Active lisinopriL 20 mg tabletIndication s:Essential hypertension Take 1 Tablet (20 mg) by mouth once daily. 60 Tablet 07/07/19 25 025 Discontinued Active Problems Problem Noted Date Diagnosed Date [...] Recent encounter dx: 05/26/23: Office Visit - [facility] (from [facility]) Recent notes: 03/17/24: Progress Notes - Office visit by Crispin Ordoñez MD ... [+] ? Bulimia nervosa 12/14/23: Progress Notes - Office visit by Crispin Ordoñez MD ... [-] bulimia nervosa? 05/26/23: Progress Notes by Kim Shannon DO (from [facility]) ... [+] Bulimia nervosa 01/11/19: ED Notes - ED Provider Notes by Ed Bhat MD (from [facility]) ... [+] Bulimia nervosa Anxiety 06/18/15: Record - [facility] by ARIADNA BURR ... [-] [...] AMA, bulimia, and obesity. 06/18/15: Record - [facility] by ARIADNA BURR ... [-] agree with [facility] for bulimia. Essential hypertension 09/06/2014 Moderate [...] Encounters Date Type Department Care Team Description 09/01/[address] [facility] [address] [address] Maci Rosario MD Results; Medication Management 09/01/2024 Refill [facility] [address] [place] [address] Crispin Ordoñez MD Refill Request (Lisinopril) 08/31/2024 3:30 PM CDT Office Visit [facility] [address] [place] [address] Maci Rosario MD Derm Problem 08/31/2024 Travel 08/29/[address] [facility] [address] [place] [address] Maci Rosario MD Appointment 08/01/2024 2:00 PM CDT Nurse/Clinic Staff Only [facility] [address] [place] [address] Procedure (uvb) 08/01/2024 Travel 07/31/2024 Orders Only [facility] [address] [place] [address] Crispin Ordoñez MD <No scans attached> 07/28/2024 10:30 AM CDT Ancillary Procedure [facility] [address] [place] [address] 07/28/2024 Travel 07/22/2024 3:00 PM CDT Nurse/Clinic Staff Only [facility] [address] [place] [address] Procedure (uvb) 07/22/2024 Travel 07/21/2024 Telephone [facility] [address] [place] [address] Crispin Ordoñez MD Follow Up (Blood pressure) 07/20/[address] [facility] [address] [place] [address] Maci Rosario MD Questions (COMBINE APPT 08/08/24 AND 08/09/24 ) 07/19/2024 Travel 07/15/2024 3:00 PM CDT Nurse/Clinic Staff Only [facility] [address] [place] [address] Procedure (uvb) 07/15/2024 Travel 07/14/2024 Orders Only [facility] [address] [place] [address] Crispin Ordoñez MD <No scans attached> 07/13/2024 11:30 AM CDT Orders Only [facility] [address] [facility] [address] [place] [place] [facility] 07/13/2024 Nurse Triage [facility] [address] [place] [address] Claudia Gillis RN High Blood Pressure (Walked in with symptoms of high BP and blurry vision) 07/13/2024 Travel 07/10/2024 Travel 07/06/2024 2:40 PM CDT Office Visit [facility] [address] [place] [address] Crispin Ordoñez MD Follow Up (Follow Up on everything she says ) 07/06/2024 Travel 07/05/2024 2:25 PM CDT Office Visit [facility] [address] [place] [address] Chelsea Arias MD Residential Youth Counselor Exam 07/04/2024 3:00 PM CDT Nurse/Clinic Staff Only [facility] [address] [place] [address] Procedure (uvb) 07/04/2024 Travel 06/27/2024 3:00 PM CDT Nurse/Clinic Staff [facility] [address] [place] [address] Procedure (uvb) 06/27/2024 Travel 06/23/2024 Travel from Last 3 Months Immunizations Immunization [...] on file Legal Sex Female 6:37 AM DOG LICENSER Gender Identity Not on file Sexual Orientation [...] 36.9 C (98.5 F) 04/02/2024 4:17 PM DOG LICENSER Respiratory Rate 18 04/02/2024 4:17 PM DOG LICENSER Oxygen Saturation 99% 07/06/2024 2:30 PM CDT Inhaled Oxygen Concentration - - Weight 85.5 kg (188 lb 6.4 oz) 07/06/2024 2:30 P M CDT Height 157.5 cm (5' 2) 04/02/2024 4:17 PM DOG LICENSER Body Mass Index 34.46 04/02/2024 4:17 PM DOG LICENSER Plan of Treatment Upcoming Encounters Date Type Department Care Team (Late st Contact Info) Description 09/26/2024 2:40 PM CDT Office Visit [facility] [address] [place] [address] Crispin Ordoñez MD [address] [place] [address] 12/02/2024 3:40 PM CDT Office [facility] [address] [address] Maci Rosario MD [address] [address] Scheduled Procedures Name Priority Associated Diagnoses Date/Ti me SURGICAL PROCEDURE (TYPE PROCEDURE DESCRIPTION BELOW) Encounter for screening colonoscopy Health Maintenance Due Date Last Done Comments COVID-19 vaccine series (#1) 1977 Hepatitis B series for 19+ (1 of 3 - 19+ 3-dose series) 09/09/1991 Zoster (shingles) series for age 50+ (1 of 2) 09/09/1991 BMI (ht and wt on same day) for age 18+ 07/22/2017 07/22/2016 Colonoscopy through age 75 2017 Pneumococcal series for age 50+ (1 of 1 - PCV) 2022 Influenza Vaccine (#1) 2024 5, 11/17/2012, 12/11/2011, Additional history exists Tetanus booster [...] the intention of not completing the topic Hepatitis C screening for age 18-79 Completed 07/13/2024, 03/05/2012 (Verified in Care Everywhere or Patient Record) Procedures Procedure Name Priority Date/Time Associated Diagnosis Comments MD BLOOD COUNT COMPLETE AUTO&AUTO DIFRNTL WBC Routine 08/31/2024 3:20 PM CDT Vitiligo US ABDOMEN LIMITED LIVER Routine 07/28/2024 10:52 [...] 07/13/2024 11:12 AM CDT Screening cholesterol level MMD UNIT TEACHER THIN PREP PAP SCREEN IMAGED Routine 07/05/2024 3:11 PM CDT Screening for cervical cancer HPV HIGH RISK Routine 07/05/2024 3:11 PM CDT Screening for cervical cancer XR MAMMO DRE BILAT SCREEN Routine 06/01/2024 4:13 PM CDT Encounter for screening mammogram for malignant neoplasm of breast from Last 3 Months or Most Recently Relevant to Health Maintenance Results * (ABNORMAL) CBC AND DIFFERENTIAL (08/31/2024 3:20 PM CDT) WHITE BLOOD CELL COUNT 6.9 3.8 - 10.8 Thousand/u L [facility] RED BLOOD CELL COUNT 4.32 3.80 - 5.10 Million/uL [facility] HEMOGLOBIN 11.7 11.7 - 15.5 g/dL [facility] HEMATOCRIT 36.9 35.0 - 45.0 % [facility] MCV 85.4 80.0 - 100.0 fL [facility] MCH 27.1 27.0 - 33.0 pg [facility] MCHC 31.7(L) 32.0 - 36.0 g/dL [facility] Comment: For adults, a slight decrease in the calculated MCHC value (in the range of 30 to 32 g/dL) is most likely not clinically significant; however, it should be interpreted with caution in correlation with other red cell parameters and the patient's clinical condition. RDW 14.7 11.0 - 15.0 % [facility] PLATELET COUNT 222 140 - 400 Thousand/u L [facility] MPV 11.9 7.5 - 12.5 fL [facility] ABSOLUTE NEUTROPHILS 4,244 1,500 - 7,800 cells/uL [facility] ABSOLUTE LYMPHOCYTES 1,918 850 - 3,900 cells/uL [facility]) ABSOLUTE MONOCYTES 580 200 - 950 cells/uL [facility]) ABSOLUTE EOSINOPHILS 131 15 - 500 cells/uL [facility]) ABSOLUTE BASOPHILS 28 0 - 200 cells/uL [facility] NEUTROPHILS 61.5 % [facility] LYMPHOCYTES 27.8 % [facility] MONOCYTES 8.4 % [facility] EOSINOPHILS 1.9 % [facility] BASOPHILS 0.4 % [facility] Blood BLOOD SPECIMEN / Unknown 08/31/2024 3:20 PM CDT 08/31/2024 3:21 PM CDT us Maci Rosario MD HEMATOLOGY Final Result Performing Organization Address City/State/[facility] Co de Phone Number [facility] [address] [place] [address], [facility] [address] [place] [address] [facility] [address] [place] [phone] * US ABDOMEN LIMITED LIVER (07/28/2024 10:52 [...] B SURFACE ANTIGEN NON-REACTI VE NON-REACTI VE [email or web address] Comment: For additional information, please refer to http://[employer]/faq/QAE824 (This link is being provided for informational/ educational purposes only.) Blood BLOOD SPECIMEN / Unknown 07/13/2024 11:12 AM CDT 07/13/2024 11:16 AM CDT Narrative [facility] - 07/14/2024 7:09 AM CDT FASTING:NO FASTING: NO Crispin Ordoñez MD SEND OUTS Final Result [facility] [address] [place] [address], [facility] [address] [place] [phone] * ANTI HCV (07/13/2024 11:12 AM CDT) HEPATITIS C ANTIBODY NON-REACTI VE NON-REACT SASCHA [email or web address] Comment: HCV antibody was non-reactive. There is no laboratory evidence of HCV infection. In most cases, no further action is required. However, if recent HCV exposure is suspected, a test for HCV RNA (test code 10849) is suggested. For additional information please refer to http://[employer].Cozy Queen/faq/PUW01e8 (This link is being provided for informational/ educational purposes only.) Blood BLOOD SPECIMEN / Unknown 07/13/2024 11:12 AM CDT 07/13/2024 11:16 AM CDT Narrative [facility] - 07/14/2024 7:09 AM CDT FASTING:NO FASTING: NO Crispin Ordoñez MD SEND OUTS Final Result Performing Organization Address [facility]/ZIP Co de Phone Number [facility] [address] [place] [address], [facility] [address] [facility] [place] [address] * (ABNORMAL) ANTI HBS QUANT AHS (07/13/2024 11:12 AM CDT) HEPATITIS B SURFACE AB IMMUNITY, QN <5(L) > OR = 10 mIU/mL [email or web address] Comment: Patient does not have immunity to hepatitis B virus. For additional information, please refer to http://[employer].Cozy Queen/faq/RXM479 (This link is being provided for informational/ educational purposes only). Blood BLOOD SPECIMEN / Unknown 07/13/2024 11:12 AM CDT 07/13/2024 11:16 AM CDT Narrative [facility] - 07/14/2024 7:09 AM CDT FASTING:NO FASTING: NO Crispin Ordoñez MD SEND OUTS Final Result Performing Organization Address [facility]/ZIP Co de Phone Number [facility] [address] [place] [address], [facility] [address] [facility] [place] [address] * ANTI HBC (07/13/2024 11:12 AM CDT) HEPATITIS B CORE AB TOTAL NON-REACTI VE NON-REACTI VE [facility] Comment: For additional information, please refer to http://Zett[employer].Cozy Queen/faq/WVR637 (This link is being provided for informational/ educational purposes only.) Blood BLOOD SPECIMEN / Unknown 07/13/2024 11:12 AM CDT 07/13/2024 11:16 AM CDT Narrative [facility] - 07/14/2024 7:09 AM CDT FASTING:NO FASTING: NO Crispin Ordoñez MD SEND OUTS Final Result [facility] [address] [place] [address], [facility] [address] [place] [address] * (ABNORMAL) LIPID PANEL (07/13/2024 11:12 AM CDT) CHOLESTEROL, TOTAL 292(H) <200 mg/dL [facility] [employer] HDL CHOLESTEROL 68 > OR = 50 mg/dL [facility] [place] TRIGLYCERIDES 136 <150 mg/dL [facility] [place] LDL-CHOLESTEROL 195(H) mg/dL (calc) [facility] Comment: LDL-C levels > or = 190 [...] about testing for familial hypercholesterolemia, please call [facility] at [phone].INFO. Eladio T, et al. J National Lipid Association Recommendations for Patient-Centered Management of Dyslipidemia: Part 1 Journal of Clinical Lipidology 2015;9(2), 129-169. Swathi Schwartz et al. (2014). Homozygous familial hypercholesterolaemia: new insights and guidance for clinicians to improve detection and clinical management. Heart Journal, 35(32), 7838-8822. Reference range: <100 Desirable range <100 mg/dL for primary prevention; <70 mg/dL for patients with CHD or diabetic patients with > or = 2 CHD risk factors. LDL-C is now calculated using the Prakash calculation, which is a validated novel method providing better accuracy than the Friedewald equation in the estimation of LDL-C. Minor MCKENNA et al. RICK. 2013;310(19): 1063-9536 (http://education.StitcherAds/faq/YNZ119) CHOL/HDLC RATIO 4.3 <5.0 (calc) [facility] NON HDL CHOLESTEROL 224(H) <130 mg/dL (calc) [facility] Comment: Non-HDL level > or = [...] AM CDT 07/13/2024 11:16 AM CDT Narrative [facility] - 07/14/2024 5:17 AM CDT FASTING:NO FASTING: NO Crispin Ordoñez MD CHEMISTRY Final Result [facility] [address] [place] [address], [facility] [address] [place] [address] * (ABNORMAL) COMP METABOLIC PANEL (07/13/2024 11:12 AM CDT) [facility] GLUCOSE 155(H) 65 - 139 mg/dL [facility] Comment: Non-fasting reference interval UREA NITROGEN (BUN) 15 7 - 25 mg/dL [facility] CREATININE 0.72 0.50 - 1.03 mg/dL [facility] EGFR 101 > OR = 60 mL/min/1. 73m2 [facility] BUN/CREATININE RATIO SEE NOTE: 6 - 22 (calc) [facility] Comment: Not Reported: BUN and Creatinine are within reference range. SODIUM 141 135 - 146 mmol/L [facility] POTASSIUM 3.9 3.5 - 5.3 mmol/L [facility] CHLORIDE 104 98 - 110 mmol/L [facility] CARBON DIOXIDE 28 20 - 32 mmol/L [...] 07/14/2024 5:17 AM CDT FASTING:NO FASTING: NO us Crispin Ordoñez MD CHEMISTRY Final Result [facility] [address] [place] [address], [email or web address] [address] [place] [address] * MMD UNIT TEACHER THIN PREP PAP SCREEN IMAGED [[id number]] (07/05/2024 3:11 PM CDT) Case Report Gynecologic Cytology Report Case: [id number] Authorizing Provider: Chelsea Arias MD Collected: 07/05/2024 151 Ordering Location: [facility] Received: 07/05/2024 1511 Clinic First Screen: Yuliana Nichole Specimen: MMD UNIT TEACHER ThinPrep Vial Screening, Cervical 07/19/2024 1:59 PM CDT [facility] INTERPRETATION/ RESULT NEGATIVE FOR INTRAEPITHELIAL LESION OR MALIGNANCY (NIL) (none) 07/19/2024 1:59 PM CDT [facility] at 1359 CDT SPECIMEN ADEQUACY Satisfactory for evaluation Endocervical component present 07/19/2024 1:59 PM CDT [facility] HPV REQUEST HPV and PAP 07/19/2024 1:59 PM CDT [facility] Date of LMP postmenopausal 1:59 PM CDT [facility] Last Pap Date unknown 07/19/2024 1:59 PM CDT [facility] Last Pap Result First Pap/Unknown 1:59 PM CDT [facility] Abnormal Pap or [place] Bx in last 5 years No 07/19/2024 1:59 PM CDT [facility] Menstrual Status Postmenopausal 07/19/2024 1:59 PM CDT [facility] [employer] [facility] ENTRAL LABORATORY [place] Bx Done Today No 07/19/2024 1:59 PM CDT [facility] [employer] [facility] ENTRAL LABORATORY Additional Information None given 07/19/2024 1:59 PM CDT [facility] [employer] ENTRAL LABORATORY Comment: Cytology is screened at [facility] - [address], [place] [address] and [facility] - [address], [place] [address] and [facility] - [address] [facility] [place] [address] Interpreted at [facility] [employer] [facility] - [address], [place] [address] Automated Review Successful 07/19/2024 1:59 PM CDT [facility] ENTRIL LABORATORY Comment:Specimen processed s uccessfully by automated scientific database curator device, ThinPrep Imaging System, [employer] ANCILLARY TESTING MMD UNIT TEACHER HPV Ordered, Please see separate report 07/19/2024 1:59 PM CDT [facility] Note The pap test is a [...] and malignant lesions. 07/19/2024 1:59 PM CDT [facility] Other (Cervical) Non-Blood / Unknown 07/05/2024 3:11 PM CDT 07/05/2024 3:11 PM CDT Chelsea Arias MD PATHOLOGY/CYTOLOGY Final Re sult [facility] [address] [place] [address], * HPV HIGH RISK (07/05/2024 3:11 PM CDT) TYPE 16 Negative Negative 07/08/2024 2:58 PM CDT [facility] TRAL LABORATORY TYPE 18 Negative Negative 07/08/2024 2:58 PM CDT [facility] OTHER HIGH RISK TYPES Negative Negative 07/08/2024 2:58 PM CDT [facility] Other (Cervical) Non-Blood / Unknown 07/05/2024 3:11 PM CDT 07/06/2024 11:42 AM CDT Narrative [facility] - 07/08/2024 2:58 PM CDT HPV types 16, 18, 31, 33, 35, 39, 45, 51, 52, 56, 58, 59, 66 and 68 DNA were undetectable or below the pre-set threshold. Methodology: [employer] 4800 HPV Test Chelsea Arias MD MICROBIOLOGY Final Resul t [facility]AL LABORATORY [address] [place] [address], * XR MAMMO DRE BILAT SCREEN (06/01/2024 [...] care provider. XR MAMMO DRE BILAT SCREEN [[id number]] CLINICAL HISTORY: This is an asymptomatic 53 y.o. patient. INDICATION FOR EXAM: Mammogram Screening. TECHNIQUE: CC and MLO views were obtained. This study was evaluated with the assistance of Computer-Aided Detection. Breast Tomosynthesis was used in interpretation. COMPARISON FILM: Yes 10/04/14 for; to (do[facility] 09/12/14 [facility] [employer] FINDINGS: There are scattered areas of fibroglandular density. There are no dominant masses, suspicious micro calcifications or areas of architectural distortion. Crispin Ordoñez MD MAMMO Final Result from Last 3 Months or Most Recently Relevant to Health Maintenance Insurance [facility] Advance Directives * Full Code (Latest [...] 8:27 PM 05/01/2015 12:58 AM Care Teams Cell Biologist Relationship Specialty Start Date End Date Crispin Ordoñez MD [address] [place] [address] PCP - General Family Practice 12/14/23
--- OUTSIDE RECORDS SUMMARY | 2024-09-21 20:59 | XMS_ITS | Clinical Summary ---
Author Organization [email or web address] Address [address] [place] [address] Care Team Providers Care Branch Service Representative Name Role Phone Unavailable Primary Care Provider Unavailabl e Source Comments You are receiving this document as you are listed as the primary care provider,follow-up provider, or the patient has been referred to you for consultation.This is in compliance with the Medicare and[facility] EHR Incentive Program,which states Providers who transition their patient to another setting of careor provider of care or refers their patient to another provider of care shouldprovide summary care record for each transition of care or referral. [facility] Allergies Active Allergy Reactions Criticality Noted Date [...] hours I will call the clinic directly ([phone]) Questions or concerns outside clinic hours I will call the 24 hour nurse line at [phone] Patient needs to schedule an appointment I will call the 24 hour scheduling team at [phone] or clinic directly Same day treatment I will call the clinic first, nurse line if after hours, urgent care and express care if needed Clinic Care Coordination (RN/SW) Sophie Valenzuela RN, PERFORATOR DERECK CarterW, LOCK TENDER [facility] Sophie [phone] Candace [phone] Crisis Services [facility] [phone] [facility]: [phone] Intake Behavioral Health Providers ([facility]): [phone] Immediate emergency treatment 911 DX V65.8 REPLACED WITH [id number] [facility] (05/31/2012) Encounter for screening for cardiovascular disor [...] second trimester 02/21/2015 06/26/2015 01/05/2015 08/20/2015 CAREPLAN: [facility] 5 08/02/2015 Overview (09/28/2015): Background: Engaged in Disease Management-Healthy : Jessica Stoll) JARRELL Mcclendon [phone] Essential hypertension 09/06/201410/19 Varicose vein of leg 04/28/2014 015 Overview (10/15/2016): Varicose veins 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 Immunizations Immunization Administration Dates Next Due Flu Vac (3+ yrs) 11/17/2012,12/11/2011, 0 Flu Vac Preserv Free (3+yrs) 01/18/2008 Influenza IIV4 (Quadrivalent) 0.5mL (99807) 06/2014,11/17/2012 TDAP (ADACEL) 02/05/2012 TDAP (BOOSTRIX) 04/03/2015 [...] Vaccine (1 - season) 2023 Influenza Vaccine (#1) 2024 5, 02/18/2014 (Completed), 11/17/2012, Additional history exists Cholesterol [...] - 199 mg/dL 12/02/2019 7:57 AM CDT [facility] Triglyceride 136 <=149 mg/dL 12/02/2019 7:57 AM CDT [facility] HDL Cholesterol 52 >=40 mg/dL 0 7:57 AM CDT [facility] LDL, Calculated 126 <130 mg/dL 0 7:57 AM CDT [facility] Non HDL Chol, Calculated 153 mg/dL 12/02/2019 7:57 AM CDT [facility] Cholesterol/HDL Ratio 3.9 12/02/2019 7:57 AM CDT [facility] Blood Venipuncture / Unknown 12/02/2019 7:02 AM CDT 12/02/2019 7:19 AM CDT us Josee Muñoz MD LAB_1 Final Result [facility] [address] [place], [place] [address] * Pap Smear (12/09/2017 12:42 PM CDT) 12/09/2017 12:4 2 PM CDT Narrative AREN SUAREZ - 12/25/2017 10:32 AM CDT FINAL GYNECOLOGICAL CYTOLOGY REPORT Pathology #: [id number] Date Obtained: 12/09/2017 Date Received: 12/10/2017 INTERPRETATION/RESULTS: [...] and false-negative reports may occur. Performed at [address] [address] us Jessica Clark MD LAB_1 Final Result [facility] [address] [place] [id number] * HIV ANTIBODY (11/27/2014 9:52 AM CDT) HIV 1/HIV 2 Non-React Non-Reacti ve HP CONVERSION 11/27/2014 9:52 AM CDT 11/27/2014 3:49 PM CDT Narrative HP CONVERSION - 11/28/2014 12:01 AM CDT Performed at [address] [address] Transcriptions 04/03/2016 2:55 AM CSTNotes Recorded by Lizzie Pizarro APRN, CNM on 11/28/2014 at 9:40 AMUA reviewed us Bridget Casper APRN, CNM LAB_1 Final Result [facility] [...] be communicated to the patient by the [facility] and we will attempt to schedule any [...] be communicated to the patient by the [facility] and we will attempt to schedule any [...]
[2024-09-21 21:08] VITALS: BP 159/94; PULSE 108; RESP 20; TEMP 36.8; O2SAT 98
[2024-09-22] MEDS: HYDROCODONE-ACETAMIN 5-325 MG 1 TAB 2 TAB PO (00:18)
--- NOTE | 2024-09-22 00:18 | ED.GENADULT ---
HPI - General Adult General Date Seen: 09/22/24 Chief complaint: Dental/Oral/Mouth Injury/Pain Stated complaint: upper tooth infection Time Seen by Provider: 09/21/24 23:58 History of Present Illness HPI narrative: 54 yo F presenting to the ER today with her son for evaluation of dental pain involving her maxillary central incisors. She has had trouble with her left maxillary central incisor actually had a dental procedure done on that about 2 weeks ago. She had been on some antibiotics (Azithromycin for that) and was given a prescription for Tylenol with codeine. She finished up antibiotics and finish the pain meds and since then, for the past couple of days it has developed new swelling of the bump in between her 2 incisors on the back of her teeth and tonight also started develop a little bit of swelling on the gums of her upper lip. She also has a low-grade fever today. She has another appointment to see her dentist scan tomorrow but knowing she was running a fever, and requiring some pain medication to get through the night, she came here to the ER. She has no history of diabetes or immunosuppression. No dental trauma. No pain or swelling of her lower jaw. No trouble breathing. No facial swelling. Related Data Home Medications ?Medication ?Instructions ?Recorded ?Confirmed amlodipine 5 mg tablet 5 mg PO DAILY 03/23/24 09/21/24 fluoxetine 20 mg capsule 20 mg PO DAILY 03/23/24 09/21/24 Previous Rx's ?Medication ?Instructions ?Recorded mupirocin 2 % topical ointment 1 applic topical BID #15 grams 01/20/24 clindamycin HCl 300 mg capsule 300 mg PO TID #21 caps 09/22/24 hydrocodone 5 mg-acetaminophen 325 1 - 2 tab PO Q4-6H PRN pain #10 09/22/24 mg tablet tabs Allergies Allergy/AdvReac Type Severity Reaction Status Date / Time Penicillins Allergy Intermediate Rash Verified 09/21/24 21:07 [facility] Social History service: No Exam Narrative: Exam Narrative: Constitutional: Appears well-developed and well-nourished. Alert. Conversant. Non toxic. HENT: Head: Atraumatic. Nose: Nose normal. Mouth/Throat: Oral mucosa is clear and moist. no trismus. Pharynx normal. Tonsils symmetric. No tonsillar enlargement, erythema, or exudate. She does have a little bit of swelling between the 2 upper central incisors. No palpable fluctuance. Also a subtle induration of the gums adjacent to the maxillary incisors but no palpable fluctuance there either. No evidence for any gingival abscess. No swelling on the hard palate or soft palate. Pharynx is normal. No submandibular swelling. No trismus. Eyes: Conjunctivae normal. EOM normal. Pupils equal, round, and reactive to light. No scleral icterus. Neck: Normal range of motion. Neck supple. No tracheal deviation present. Cardiovascular: Normal rate, regular rhythm. No gallop. No friction rub. No murmur heard. Pulmonary/Chest: Effort normal. No stridor. No respiratory distress. No wheezes. No rales. No rhonchi . Musculoskeletal: RUE: Normal range of motion. No tenderness. No deformity LUE: Normal range of motion. No tenderness. No deformity RLE: Normal range of motion. No edema. No tenderness. No deformity LLE: Normal range of motion. No edema. No tenderness. No deformity Lymph: No submental or cervical adenopathy. Neurological: Alert and oriented to person, place, and time. Normal strength. CN II-VII intact. No sensory deficit. GCS eye subscore is 4. GCS verbal subscore is 5. GCS motor subscore is 6. Normal coordination Skin: Skin is warm and dry. No rash noted. No pallor. Normal capillary refill. Psychiatric: Normal mood. Normal affect. Const: Vital Signs, click to edit/add: Vital Signs - 24 hr 09/21/24 21:08 Temperature 98.2 F Pulse Rate [Pulse Oximeter] 108 H Respiratory Rate 20 Blood Pressure [Ri ght Upper Arm] 159/94 H Pulse Oximetry 98 Oxygen Delivery Me thod Room Air Course Vital Signs Vital signs: Initial Vital Signs Temperature 98.2 F 09/21/24 21:08 Temperature Source Temporal Artery Scan 09/21/24 21:08 Pulse Rate 108 H 09/21/24 21:08 Respiratory Rate 20 09/21/24 21:08 Blood Pressure 159/94 H 09/21/24 21:08 Blood Pressure Mean 115 H 09/21/24 21:08 Pulse Oximetry 98 09/21/24 21:08 Oxygen Delivery Method Room Air 09/21/24 21:08 Vital Signs Temperature 98.2 F 09/21/24 21:08 Pulse Rate 108 H 09/21/24 21:08 Respiratory Rate 20 09/21/24 21:08 Blood Pressure 159/94 H 09/21/24 21:08 Pulse Oximetry 98 09/21/24 21:08 Oxygen Delivery Method Room Air 09/21/24 21:08 Temperature 98.2 F 09/21/24 21:08 Pulse Rate 108 H 09/21/24 21:08 Respiratory Rate 20 09/21/24 21:08 Blood Pressure 159/94 H 09/21/24 21:08 Pulse Oximetry 98 09/21/24 21:08 Oxygen Delivery Method Room Air 09/21/24 21:08 Medications Administered Medications: Generic Name Dose Route Start Last Admin Trade Name Bteitoq PRN Reason Stop Dose Admin Hydrocodone Bitart/Acetaminophen 2 tab 09/22/24 00:09 09/22/24 00:18 Hydrocodone-Acetamin 5-325 Mg 1 Tab PO 09/22/24 00:10 2 tab ONCE ONE Administration Medical Decision Making MDM Narrative Medical decision making narrative: This patient presents with a dental pain involving her maxillary central incisors. The differential diagnosis includes: cracked tooth syndrome, pulpitis, sub-apical abscess, amongst others. She does have a little bit of swelling of the gums but There is no abscess detected around the tooth amenable to incision and drainage. There is no evidence of buccinator/canine space infections, significant facial swelling, or Larry's angina. There are no posterior pharyngeal space infections detected. Suspect pulpitis. Treatment with NSAID, antibiotics. Will put her on clindamycin and [place]. Opiate precautions reviewed. She has a sober service car driver to get her home. Follow up with a dentist/insurance business analyst in the coming days is indicated for further work up and treatment. She already has an appointment to see her dentist tomorrow morning. Instructions for return to the ER were reviewed with the patient. First dose of clindamycin and [place] administered here in the ER. She prefers prescriptions to her pharmacy rather than [facility]. These were sent. Opiate precautions reviewed. Discharge Plan Discharge Clinical Impression: Toothache Patient Disposition: Home, Self-Care Condition: Stable Instructions: Toothache (ED) Additional Instructions: As we discussed, please follow-up with your dentist tomorrow morning for recheck. If you notice increasing swelling, high fever, trouble breathing or trouble swallowing, or have other problems, please return to the ER right away. Please start on your next dose of clindamycin tomorrow morning. Use [place] if needed. Be careful because [place] can cause dizziness, drowsiness, constipation, and can be addictive. Prescriptions: New clindamycin HCl 300 mg capsule 300 mg PO TID Qty: 21 0RF hydrocodone-acetaminophen 5-325 mg tablet 1 - 2 tab PO Q4-6H PRN (Reason: pain) Qty: 10 0RF No Action mupirocin 2 % ointment 1 applic topical BID Qty: 15 0RF amlodipine 5 mg tablet 5 mg PO DAILY fluoxetine 20 mg capsule 20 mg PO DAILY Patient Comments: [NO ORIGINAL SIG] Follow Up/Referrals: Provider,Not a Local [Primary Care Provider, Family Practice] Stand Alone Forms: [employer] Info Instructions
--- OUTSIDE RECORDS SUMMARY | 2024-09-22 00:21 | XMS_ITS | Clinical Summary ---
Author Organization .[employer] Address [facility] [place] [address] Care Team Providers Care Metal Bonding Crib Attendant Name Role Phone Crispin Ordoñez MD Primary [...] Recent encounter dx: 05/26/23: Office Visit - [facility] (from [facility]) Recent notes: 03/17/24: Progress Notes - Office visit by Crispin Ordoñez MD ... [+] ? Bulimia nervosa 12/14/23: Progress Notes - Office visit by Crispin Ordoñez MD ... [-] bulimia nervosa? 05/26/23: Progress Notes by Kim Shannon DO (from [facility]) ... [+] Bulimia nervosa 01/11/19: ED Notes - ED Provider Notes by Ed Bhat MD (from [place]) ... [+] Bulimia nervosa Anxiety 06/18/15: Record - [facility] by ARIADNA BURR ... [-] [...] AMA, bulimia, and obesity. 06/18/15: Record - [facility] by ARIADNA BURR ... [-] agree with [facility] for bulimia. Essential hypertension 09/06/2014 Moderate [...] Type Department Care Team Description 09/01/2024 Telephone [facility] [address] [address] Maci Rosario MD Results; Medication Management 09/01/2024 Refill [facility] [address] [place] [address] Crispin Ordoñez MD Refill Request (Lisinopril) 08/31/2024 3:30 PM CDT Office Visit [facility] [address] [place] [address] Maci Rosario MD Derm Problem 08/31/2024 Travel 08/29/2024 Telephone [facility] [address] [place] [address] Maci Rosario MD Appointment 08/01/2024 2:00 PM CDT Nurse/Clinic Staff Only [facility] [address] [place] [address] Procedure (uvb) 08/01/2024 Travel 07/31/2024 Orders Only [facility] [address] [facility] [place] [address] Crispin Ordoñez MD <No scans attached> 07/28/2024 10:30 AM CDT Ancillary Procedure [facility] [address] [facility] [place] [address] 07/28/2024 Travel 07/22/2024 3:00 PM CDT Nurse/Clinic Staff Only [facility] [address] [place] [address] Procedure (uvb) 07/22/2024 Travel 07/21/2024 Telephone [facility] [address] [place] [address] Crispin Ordoñez MD Follow Up (Blood pressure) 07/20/2024 Telephone [facility] [address] [place] [address] Maci Rosario MD Questions (COMBINE APPT 08/08/24 AND 08/09/24 ) 07/19/2024 Travel 07/15/2024 3:00 PM CDT Nurse/Clinic Staff Only [facility] [address] [place] [address] Procedure (uvb) 07/15/2024 Travel 07/14/2024 Orders Only [facility] [address] [facility] [place] [address] Crispin Ordoñez MD <No scans attached> 07/13/2024 11:30 AM CDT Orders Only [facility] [address] [facility] [address] [facility], [place] [facility] 07/13/2024 Nurse Triage [facility] [address] [facility] [place] [address] Claudia Gillis RN High Blood Pressure (Walked in with symptoms of high BP and blurry vision) 07/13/2024 Travel 07/10/2024 Travel 07/06/2024 2:40 PM CDT Office Visit [facility] [address] [facility] [place] [address] Crispin Ordoñez MD Follow Up (Follow Up on everything she says ) 07/06/2024 Travel 07/05/2024 2:25 PM CDT Office Visit [facility] [address] [facility] [place] [address] Chelsea Arias MD High Pressure Firer Exam 07/04/2024 3:00 PM CDT Nurse/Clinic Staff Only [facility] [address] [place] [address] Procedure (uvb) 07/04/2024 Travel 06/27/2024 3:00 PM CDT Nurse/Clinic Staff Only [facility] [address] [place] [address] Procedure (uvb) 06/27/2024 Travel 06/23/2024 Travel from [...] on file Legal 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 Gender Identity Not on file Sexual Orientation [...] 36.9 C (98.5 F) 04/02/2024 4:17 PM CAR PARK ATTENDANT Respiratory Rate 18 04/02/2024 4:17 PM CAR PARK ATTENDANT Oxygen Saturation 99% 07/06/2024 2:30 PM CDT Inhaled Oxygen Concentration - - Weight 85.5 kg (188 lb 6.4 oz) 07/06/2024 2:30 P M CDT Height 157.5 cm (5' 2) 04/02/2024 4:17 PM CAR PARK ATTENDANT Body Mass Index 34.46 04/02/2024 4:17 PM CAR PARK ATTENDANT Plan of Treatment Upcoming Encounters Date Type Department Care Team (Late st Contact Info) Description 09/26/2024 2:40 PM CDT Office Visit [facility] [address] [place] [address] Crispin Ordoñez MD [address] [place] [address] 12/02/2024 3:40 PM CDT Office Visit [facility] [address] [address] Maci Rosario MD [address] [address] Scheduled Procedures Name Priority Associated Diagnoses Date/Ti [...] Procedure Name Priority Date/Time Associated Diagnosis Comments NC BLOOD COUNT COMPLETE AUTO&AUTO DIFRNTL WBC Routine [...] 07/13/2024 11:12 AM CDT Screening cholesterol level BEADER THIN PREP PAP SCREEN IMAGED Routine 07/05/2024 [...] COUNT 6.9 3.8 - 10.8 Thousand/u L [facility] (Urgent [facility]) RED BLOOD CELL COUNT 4.32 3.80 - 5.10 Million/uL [facility] ([facility]) HEMOGLOBIN 11.7 11.7 - 15.5 g/dL [facility] ([facility]) HEMATOCRIT 36.9 35.0 - 45.0 % [facility] ([facility]gent [facility]) MCV 85.4 80.0 - 100.0 fL [facility] ([facility]) MCH 27.1 27.0 - 33.0 pg [facility] ([facility]) MCHC 31.7(L) 32.0 - 36.0 g/dL [facility] ([facility]) Comment: For adults, a slight decrease in the calculated MCHC value (in the range of 30 to 32 g/dL) is most likely not clinically significant; however, it should be interpreted with caution in correlation with other red cell parameters and the patient's clinical condition. RDW 14.7 11.0 - 15.0 % [facility] ([facility]) PLATELET COUNT 222 140 - 400 Thousand/u L [facility] ([facility]) MPV 11.9 7.5 - 12.5 fL [facility] ([facility]) ABSOLUTE NEUTROPHILS 4,244 1,500 - 7,800 cells/uL [facility] ([facility]) ABSOLUTE LYMPHOCYTES 1,918 850 - 3,900 cells/uL [facility] ([facility]) ABSOLUTE MONOCYTES 580 200 - 950 cells/uL [facility] ([facility]) ABSOLUTE EOSINOPHILS 131 15 - 500 cells/uL [facility] ([facility]) ABSOLUTE BASOPHILS 28 0 - 200 cells/uL [facility] ([facility]) NEUTROPHILS 61.5 % [facility] ([facility]) LYMPHOCYTES 27.8 % [facility] ([facility]) MONOCYTES 8.4 % [facility] ([facility]) EOSINOPHILS 1.9 % [facility] ([facility]) BASOPHILS 0.4 % [facility] ([facility]) Blood BLOOD SPECIMEN / Unknown 08/31/2024 3:20 PM CDT 08/31/2024 3:21 PM CDT us Maci Rosario MD HEMATOLOGY Final Result Performing Organization Address City/State/[facility] Co de Phone Number [facility] [address] [place] [address], [facility] [address] [place] [address] [facility] ([facility]gent [facility]) [address] [place] [phone] * US ABDOMEN LIMITED LIVER (07/28/2024 10:52 [...] B SURFACE ANTIGEN NON-REACTI VE NON-REACTI VE [facility] Comment: For additional information, please refer to http://Easydiagnosis/faq/KBH821 (This link is being provided for informational/ educational purposes only.) Blood BLOOD SPECIMEN / Unknown 07/13/2024 11:12 AM CDT 07/13/2024 11:16 AM CDT Narrative [facility] - 07/14/2024 7:09 AM CDT FASTING:NO FASTING: NO Crispin Ordoñez MD SEND OUTS Final Result [employer] [facility] [address] [place] [address], [facility] [address] [place] [phone] * ANTI HCV (07/13/2024 11:12 AM CDT) HEPATITIS C ANTIBODY NON-REACTI VE NON-REACT SASCHA [facility] Comment: HCV antibody was non-reactive. There is no laboratory evidence of HCV infection. In most cases, no further action is required. However, if recent HCV exposure is suspected, a test for HCV RNA (test code 41422) is suggested. For additional information please refer to http://ZenoLink.Youbetme/faq/QXU05t2 (This link is being provided for informational/ educational purposes only.) Blood BLOOD SPECIMEN / Unknown 07/13/2024 11:12 AM CDT 07/13/2024 11:16 AM CDT Narrative [facility] - 07/14/2024 7:09 AM CDT FASTING:NO FASTING: NO Crispin Ordoñez MD SEND OUTS Final Result Performing Organization Address [facility]/ZIP Co de Phone Number [facility] [address] [place] [address], [facility] [address] [facility] [place] [address] * (ABNORMAL) ANTI HBS QUANT AHS (07/13/2024 11:12 AM CDT) HEPATITIS B SURFACE AB IMMUNITY, QN <5(L) > OR = 10 mIU/mL [facility] Comment: Patient does not have immunity to hepatitis B virus. For additional information, please refer to http://ZenoLink.Youbetme/faq/FKC944 (This link is being provided for informational/ educational purposes only). Blood BLOOD SPECIMEN / Unknown 07/13/2024 11:12 AM CDT 07/13/2024 11:16 AM CDT Narrative [facility] - 07/14/2024 7:09 AM CDT FASTING:NO FASTING: NO Crispin Ordoñez MD SEND OUTS Final Result Performing Organization Address [facility]/ZIP Co de Phone Number [facility] [address] [place] [address], [facility] [address] [facility] [place] [address] * ANTI HBC (07/13/2024 11:12 AM CDT) HEPATITIS B CORE AB TOTAL NON-REACTI VE NON-REACTI VE [facility] Comment: For additional information, please refer to http://ZenoLink.Youbetme/faq/RAK021 (This link is being provided for informational/ educational purposes only.) Blood BLOOD SPECIMEN / Unknown 07/13/2024 11:12 AM CDT 07/13/2024 11:16 AM CDT Narrative [facility] - 07/14/2024 7:09 AM CDT FASTING:NO FASTING: NO Crispin Ordoñez MD SEND OUTS Final Result [employer] [facility] [address] [place] [address], [facility] [address] [place] [address] * (ABNORMAL) LIPID PANEL (07/13/2024 11:12 AM CDT) CHOLESTEROL, TOTAL 292(H) <200 mg/dL [facility] [place] HDL CHOLESTEROL 68 > OR = 50 mg/dL [facility] [employer] [place] TRIGLYCERIDES 136 <150 mg/dL [facility] [employer] [place] LDL-CHOLESTEROL 195(H) mg/dL (calc) [employer] Comment: LDL-C levels > or = 190 [...] about testing for familial hypercholesterolemia, please call [employer] [facility] at [phone].INFO. Eladio T, et al. J National Lipid Association Recommendations for Patient-Centered Management of Dyslipidemia: Part 1 Journal of Clinical Lipidology 2015;9(2), 129-169. Swathi Schwartz et al. (2014). Homozygous familial hypercholesterolaemia: new insights and guidance for clinicians to improve detection and clinical management. Heart Journal, 35(32), 2069-6610. Reference range: <100 Desirable range <100 mg/dL for primary prevention; <70 mg/dL for patients with CHD or diabetic patients with > or = 2 CHD risk factors. LDL-C is now calculated using the Prakash calculation, which is a validated novel method providing better accuracy than the Friedewald equation in the estimation of LDL-C. Minor MCKENNA et al. RICK. 2013;310(19): 8729-0613 (http://education.MakerBot/faq/AKL195) CHOL/HDLC RATIO 4.3 <5.0 (calc) [facility] NON HDL CHOLESTEROL 224(H) <130 mg/dL (calc) [facility] Comment: Non-HDL level > or = [...] AM CDT 07/13/2024 11:16 AM CDT Narrative [facility] - 07/14/2024 5:17 AM CDT FASTING:NO FASTING: NO Crispin Ordoñez MD CHEMISTRY Final Result [employer] [facility] [address] [place] [address], [facility] [address] [place] [address] * (ABNORMAL) COMP METABOLIC PANEL (07/13/2024 11:12 AM CDT) [facility] GLUCOSE 155(H) 65 - 139 mg/dL [employer] Comment: Non-fasting reference interval UREA NITROGEN (BUN) 15 7 - 25 mg/dL [facility] CREATININE 0.72 0.50 - 1.03 mg/dL [employer] EGFR 101 > OR = 60 [...] us Crispin Ordoñez MD CHEMISTRY Final Result [employer] [facility] [address] [place] [address], [facility] [address] [place] [address] * BEADER THIN PREP PAP SCREEN IMAGED [[id number]] (07/05/2024 3:11 PM CDT) Case Report Gynecologic Cytology Report Case: [id number] Authorizing Provider: Chelsea Arias MD Collected: 07/05/2024 151 Ordering Location: [facility] Received: 07/05/2024 1511 Clinic First Screen: Yuliana Nichole Specimen: BEADER ThinPrep Vial Screening, Cervical 07/19/2024 1:59 PM CDT [facility] INTERPRETATION/ RESULT NEGATIVE FOR INTRAEPITHELIAL LESION OR MALIGNANCY (NIL) (none) 07/19/2024 1:59 PM CDT [facility] at 1359 CDT SPECIMEN ADEQUACY Satisfactory for evaluation Endocervical component present 07/19/2024 1:59 PM CDT [facility] HPV REQUEST HPV and PAP 07/19/2024 1:59 PM CDT [facility] Date of LMP postmenopausal 1:59 PM CDT [employer] ENTRAL LABORATORY Last Pap Date unknown 07/19/2024 1:59 PM CDT [facility] Last Pap Result First Pap/Unknown 1:59 PM CDT [facility] Abnormal Pap or Clare Bx in last 5 years No 07/19/2024 1:59 PM CDT [facility] Menstrual Status Postmenopausal 07/19/2024 1:59 PM CDT [facility] [employer] [facility] ENTRAL LABORATORY Clare Bx Done Today No 07/19/2024 1:59 PM CDT [facility] [employer] [facility] ENTRAL LABORATORY Additional Information None given 07/19/2024 1:59 PM CDT [facility] [employer] ENTRAL LABORATORY Comment: Cytology is screened at [facility] - [address], [place] [address] and [facility] Laboratory - [address], [place] [address] and Laboratory - [address] [place] [address] Interpreted at [facility] [employer] [facility] Laboratory - [address], [place] [address] Automated Review Successful 07/19/2024 1:59 PM CDT [facility] ENTRID LABORATORY Comment:Specimen processed s uccessfully by automated metal wire technician device, ThinPrep Imaging System, [facility] ANCILLARY TESTING BEADER HPV Ordered, Please see separate report 07/19/2024 1:59 PM CDT [facility] Note The pap test is a [...] and malignant lesions. 07/19/2024 1:59 PM CDT [facility] Other (Cervical) Non-Blood / Unknown 07/05/2024 3:11 PM CDT 07/05/2024 3:11 PM CDT Chelsea Arias MD PATHOLOGY/CYTOLOGY Final Re sult [facility] [address] [place] [address], * HPV HIGH RISK (07/05/2024 3:11 PM CDT) TYPE 16 Negative Negative 07/08/2024 2:58 PM CDT [facility] TRAL LABORATORY TYPE 18 Negative Negative 07/08/2024 2:58 PM CDT [facility] OTHER HIGH RISK TYPES Negative Negative 07/08/2024 2:58 PM CDT [facility] Other (Cervical) Non-Blood / Unknown 07/05/2024 3:11 PM CDT 07/06/2024 11:42 AM CDT Narrative [facility] - 07/08/2024 2:58 PM CDT HPV types 16, 18, 31, 33, 35, 39, 45, 51, 52, 56, 58, 59, 66 and 68 DNA were undetectable or below the pre-set threshold. Methodology: IPICOas 4800 HPV Test Chelsea Arias MD MICROBIOLOGY Final Resul t [facility]AL [facility]ATORY [address] [place] [address], * XR MAMMO DRE BILAT SCREEN (06/01/2024 [...] care provider. XR MAMMO DRE BILAT SCREEN [[id number]] CLINICAL HISTORY: This is an asymptomatic 53 y.o. patient. INDICATION FOR EXAM: Mammogram Screening. TECHNIQUE: CC and MLO views were obtained. This study was evaluated with the assistance of Computer-Aided Detection. Breast Tomosynthesis was used in interpretation. COMPARISON FILM: Yes 10/04/14 [facility] 09/12/14 [facility] SI-BONE FINDINGS: There are scattered areas of fibroglandular density. There are no dominant masses, suspicious micro calcifications or areas of architectural distortion. Crispin Ordoñez MD MAMMO Final Result from Last 3 Months or Most Recently Relevant to Health Maintenance Insurance [facility] Advance Directives * Full Code (Latest Code [...] 8:27 PM 05/01/2015 12:58 AM Care Teams Metal Bonding Crib Attendant Relationship Specialty Start Date End Date Crispin Ordoñez MD [address] [place] [address] PCP - General Family Practice 12/14/23
--- OUTSIDE RECORDS SUMMARY | 2024-09-22 00:21 | XMS_ITS | Clinical Summary ---
Author Organization [facility] Address [address] [place] [address] Care Team Providers Care Plant Attendant Name Role Phone Unavailable Primary Care Provider Unavailabl e Source Comments You are receiving this document as you are listed as the primary care provider,follow-up provider, or the patient has been referred to you for consultation.This is in compliance with the Medicare and[facility] Centerc[facility] EHR Incentive Program,which states Providers who transition their patient to another setting of careor provider of care or refers their patient to another provider of care shouldprovide summary care record for each transition of care or referral. Pledge51 Allergies Active Allergy Reactions Criticality Noted Date [...] hours I will call the clinic directly ([phone]) Questions or concerns outside clinic hours I will call the 24 hour nurse line at [phone] Patient needs to schedule an appointment I will call the 24 hour scheduling team at [phone] or clinic directly Same day treatment I will call the clinic first, nurse line if after hours, urgent care and express care if needed Clinic Care Coordination (RN/SW) Sophie Valenzuela RN, MANAGER COSMETIC DERECK CarterW, WINE STEWARD/STEWARDESS [facility] Sophie [phone] Candace [phone] Crisis Services [facility]/Crisis Connection [phone] [facility]: [phone] Intake Behavioral Health Providers (BHP): [phone] Immediate emergency treatment 911 DX V65.8 REPLACED WITH [id number] [facility] (05/31/2012) Encounter for screening for cardiovascular disor [...] second trimester 02/21/2015 06/26/2015 01/05/2015 08/20/2015 CAREPLAN: [facility] DISEASE MANAGEMENT 5 08/02/2015 Overview (09/28/2015): Background: Engaged in Disease Management-Healthy : Jessica Stoll) JARRELL Mcclendon [phone] Essential hypertension 09/06/201410/19 Varicose vein of leg 04/28/2014 015 Overview (10/15/2016): Varicose veins 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 Immunizations Immunization Administration Dates Next Due Flu Vac (3+ yrs) 11/17/2012,12/11/2011, 0 Flu Vac Preserv Free (3+yrs) 01/18/2008 Influenza IIV4 (Quadrivalent) 0.5mL (68308) 06/2014,11/17/2012 TDAP (ADACEL) 02/05/2012 TDAP (BOOSTRIX) 04/03/2015 [...] - 199 mg/dL 12/02/2019 7:57 AM CDT [facility] Triglyceride 136 <=149 mg/dL 12/02/2019 7:57 AM CDT [facility] HDL Cholesterol 52 >=40 mg/dL 0 7:57 AM CDT [facility] LDL, Calculated 126 <130 mg/dL 0 7:57 AM CDT [facility] Non HDL Chol, Calculated 153 mg/dL 12/02/2019 7:57 AM CDT [facility] Cholesterol/HDL Ratio 3.9 12/02/2019 7:57 AM CDT [facility] Blood Venipuncture / Unknown 12/02/2019 7:02 AM CDT 12/02/2019 7:19 AM CDT us Josee Muñoz MD LAB_1 Final Result [facility] [address] [place], [place] [address] * Pap Smear (12/09/2017 12:42 PM CDT) 12/09/2017 12:4 2 PM CDT Narrative [facility]ARE[facility] - 12/25/2017 10:32 AM CDT FINAL GYNECOLOGICAL CYTOLOGY REPORT Pathology #: [id number] Date Obtained: 12/09/2017 Date Received: 12/10/2017 INTERPRETATION/RESULTS: [...] and false-negative reports may occur. Performed at [address] [address] us Jessica Clark MD LAB_1 Final Result [facility] [address] [place] [address] * HIV ANTIBODY (11/27/2014 9:52 AM CDT) HIV 1/HIV 2 Non-React Non-Reacti ve HP CONVERSION 11/27/2014 9:52 AM CDT 11/27/2014 3:49 PM CDT Narrative HP CONVERSION - 11/28/2014 12:01 AM CDT Performed at [address] [address] Transcriptions 04/03/2016 2:55 AM CSTNotes Recorded by [...] be communicated to the patient by the [facility] and we will attempt to schedule [...] be communicated to the patient by the [facility] and we will attempt to schedule [...]
[2024-09-22] MEDS: CLINDAMYCIN 150 MG CAPSULE 300 MG PO (00:29)
== END 2024-09-22 00:39 | disposition home or self-care (01) ==
PROVIDERS: Emergency Provider Emergency Medicine
DX: K08.89 Other specified disorders of teeth and supporting structures (principal)
CPT/HCPCS: 99282; 99283; A9270